=== PATIENT | male | born 1935 | race African-American/Black ===

== ENCOUNTER 2016-09-19 15:38 | Inpatient (IN) | payer MEDICARE, MEDICAID ==
[~2016-09-19] VITALS: Ht 180.3 cm; Wt 79.4 kg
[~2016-09-19 15:38] MED LIST: AMLO5TAB88 PO; APIX2.5T PO; ASPI-1035 PO; ATOR20TA65 PO; CARV3.1242 PO; LISI10TA5 PO; OMEP20CA10 PO
[2016-09-19] MEDS ORDERED: ONDANSETRON HCL 4MG/2ML VIAL IV STA (16:15)
[2016-09-19] MEDS ORDERED: ASPIRIN 81MG TABLET PO STA (16:15)
[2016-09-19 16:36] LABS: BASOPHILS % 0.8 % (0.0-2.0); EOSINOPHILS % 6.4 % (0.0-5.0); HEMATOCRIT. 39.5 % (42.0-52.0); HEMOGLOBIN. 12.6 g/dL (14.0-18.0); MEAN CORPUSCULAR HEMOGLOBIN 26.3 pg (28.0-32.0); MEAN CORPUSCULAR VOLUME 82.2 fL (80.0-94.0); MEAN PLATELET VOLUME 7.9 fl (7.4-10.4); MONOCYTES % 10.9 % (2.0-8.0); NEUTROPHILS % 60.9 % (40.0-76.0); PLATELET 172 x1000/uL (130-400); RED CELL DISTRIBUTION WIDTH 16.3 % (11.6-14.6); WHITE BLOOD COUNT 5.2 x1000/uL (4.5-11.0)
[2016-09-19 16:43] LABS: INR 1.2; PARTIAL THROMBOPLASTIN TIME 27.1 sec (24.0-34.0); PROTHROMBIN TIME 12.3 sec
[2016-09-19 16:47] LABS: ALANINE AMINOTRANSFERASE 19 IU/L (13-61); ALBUMIN 3.3 g/dL (3.4-5.0); ANION GAP 14; CALCIUM 8.9 mg/dL (8.5-10.1); CARBON DIOXIDE 24 mEq/L (21-32); CHLORIDE 109 mEq/L (98-107); ETHANOL BLOOD 34 mg/dL; INDEX HEMOLYSI 1 (1-3); INDEX ICTERIC 1 (1-4); INDEX LIPEMIC 1 (1-3); LIPASE 128 IU/L (73-393); UREA NITROGEN BLOOD 20 mg/dL (7-21); eGFR 41 mL/min (>60)
[2016-09-19 16:52] LABS: NT PRO B-TYPE NATRIURETIC PEP 3979 pg/mL (5-125); TROPONIN I 0.05 ng/mL (0.00-0.04)
[2016-09-19] MEDS ORDERED: ONDANSETRON HCL 4MG/2ML VIAL IV PRN (19:15)
[2016-09-19] MEDS ORDERED: DOCUSATE SODIUM 100MG CAPSULE PO PRN (19:15)
[2016-09-19] MEDS ORDERED: ACETAMINOPHEN 325MG TABLET PO PRN (19:15)
[2016-09-19] MEDS ORDERED: CHLORDIAZEPOXIDE 5 MG CAPSULE PO NR (19:15)
[2016-09-19 22:14] VITALS: BP 151/88
[2016-09-20] VITALS (9 sets, daily range): BP systolic 99–135; BP diastolic 63–84
[2016-09-20] MEDS ORDERED: CARVEDILOL 3.125 MG TABLET PO SCH (01:30)
[2016-09-20] MEDS: OMEPRAZOLE 20MG CAPSULE EXTENDED RELEASE PO SCH (05:29)
[2016-09-20] MEDS: CARVEDILOL 3.125 MG TABLET PO SCH ×2 (05:30→17:08)
[2016-09-20 07:15] LABS: HEMATOCRIT. 38.9 % (42.0-52.0); HEMOGLOBIN. 12.7 g/dL (14.0-18.0); MEAN CORPUSCULAR HEMOGLOBIN 26.8 pg (28.0-32.0); MEAN CORPUSCULAR HGB CONC 32.5 g/dL (31.0-37.0); MEAN CORPUSCULAR VOLUME 82.2 fL (80.0-94.0); MEAN PLATELET VOLUME 8.5 fl (7.4-10.4); PLATELET 167 x1000/uL (130-400); RED BLOOD CELL COUNT 4.73 mill/uL (4.7-6.1); RED CELL DISTRIBUTION WIDTH 16.3 % (11.6-14.6); WHITE BLOOD COUNT 4.8 x1000/uL (4.5-11.0)
[2016-09-20 07:26] LABS: CALCIUM 9.5 mg/dL (8.5-10.1); MAGNESIUM 2.1 mg/dL (1.8-2.4)
[2016-09-20 07:58] LABS: DIFFERENTIAL COMMENT 1
[2016-09-20] MEDS: ATORVASTATIN CALCIUM 20MG TABLET PO SCH (08:32)
[2016-09-20] MEDS: AMLODIPINE 5MG TABLET PO SCH ×2 (08:34→17:07)
[2016-09-20] MEDS: ASPIRIN 81MG EC TABLET PO SCH (08:34)
[2016-09-20] MEDS: LISINOPRIL 10MG TABLET PO SCH (08:34)
[2016-09-20] MEDS: APIXABAN 2.5 MG TABLET PO SCH ×2 (08:34→17:07)
[2016-09-20 13:13] LABS: PLATELET ESTIMATE NORMAL
[2016-09-20 19:48] LABS: GLUCOSE URINE NEGATIVE (NEGATIVE); KETONES URINE NEGATIVE (NEGATIVE); LEUKOCYTE ESTERASE URINE NEGATIVE (NEGATIVE); NITRITE URINE NEGATIVE (NEGATIVE); OCCULT BLOOD URINE NEGATIVE (NEGATIVE); PROTEIN URINE NEGATIVE (NEGATIVE); SPECIFIC GRAVITY URINE 1.014 (1.005-1.030)
[2016-09-20 19:56] LABS: CLARITY URINE CLEAR (CLEAR); COLOR URINE YELLOW (YELLOW)
[2016-09-20 20:38] LABS: *AMPHETAMINES SCREEN URINE NEGATIVE (NEGATIVE); *BARBITURATES SCREEN URINE NEGATIVE (NEGATIVE); *BENZODIAZEPINES SCREEN URINE NEGATIVE (NEGATIVE); *COCAINE SCREEN URINE NEGATIVE (NEGATIVE); CANNABINOID URINE SCREEN NEGATIVE (NEGATIVE); ECSTASY MDMA SCREEN URINE NEGATIVE (NEGATIVE); METHADONE URINE SCREEN NEGATIVE (NEGATIVE); OPIATES URINE SCREEN NEGATIVE (NEGATIVE); PHENCYCLIDINE URINE SCREEN NEGATIVE (NEGATIVE)
[2016-09-21] VITALS (7 sets, daily range): BP systolic 102–141; BP diastolic 50–85
[2016-09-21] MEDS: CARVEDILOL 3.125 MG TABLET PO SCH (07:00)
[2016-09-21] MEDS: OMEPRAZOLE 20MG CAPSULE EXTENDED RELEASE PO SCH (07:00)
[2016-09-21 07:53] LABS: BASOPHILS % 0.6 % (0.0-2.0); EOSINOPHILS % 7.1 % (0.0-5.0); HEMOGLOBIN. 11.9 g/dL (14.0-18.0); LYMPHOCYTES % 23.2 % (20.0-50.0); MEAN CORPUSCULAR HEMOGLOBIN 26.3 pg (28.0-32.0); MEAN CORPUSCULAR HGB CONC 32.3 g/dL (31.0-37.0); MEAN CORPUSCULAR VOLUME 81.4 fL (80.0-94.0); MEAN PLATELET VOLUME 8.2 fl (7.4-10.4); NEUTROPHILS % 57.1 % (40.0-76.0); PLATELET 166 x1000/uL (130-400); RED BLOOD CELL COUNT 4.55 mill/uL (4.7-6.1); RED CELL DISTRIBUTION WIDTH 16.2 % (11.6-14.6); WHITE BLOOD COUNT 4.4 x1000/uL (4.5-11.0)
[2016-09-21 08:08] LABS: CALCIUM 8.7 mg/dL (8.5-10.1); MAGNESIUM 2.1 mg/dL (1.8-2.4)
[2016-09-21] MEDS: AMLODIPINE 5MG TABLET PO SCH (09:00)
[2016-09-21] MEDS: LISINOPRIL 10MG TABLET PO SCH (09:00)
[2016-09-21] MEDS: ATORVASTATIN CALCIUM 20MG TABLET PO SCH (09:22)
[2016-09-21] MEDS: ASPIRIN 81MG EC TABLET PO SCH (09:22)
[2016-09-21] MEDS: APIXABAN 2.5 MG TABLET PO SCH (09:22)
== END 2016-09-21 16:20 | disposition home or self-care (01) | DRG 896 ==
LOC: ER 15:38 → 8WST 17:08
PROVIDERS: ADMIT Family Medicine Adult Medicine; ATTEND Family Medicine Adult Medicine
DX: F10.129 Alcohol abuse with intoxication, unspecified (principal); G93.40 Encephalopathy, unspecified; E44.1 Mild protein-calorie malnutrition; I42.9 Cardiomyopathy, unspecified; N18.4 Chronic kidney disease, stage 4 (severe); G81.94 Hemiplegia, unspecified affecting left nondominant side; I13.0 Hypertensive heart and chronic kidney disease with heart failure and stage 1 through stage 4 chronic kidney disease, or unspecified chronic kidney disease; N17.9 Acute kidney failure, unspecified; D64.9 Anemia, unspecified; E11.22 Type 2 diabetes mellitus with diabetic chronic kidney disease; F03.90 Unspecified dementia, unspecified severity, without behavioral disturbance, psychotic disturbance, mood disturbance, and anxiety; I25.10 Atherosclerotic heart disease of native coronary artery without angina pectoris; I48.91 Unspecified atrial fibrillation; I50.9 Heart failure, unspecified; J44.9 Chronic obstructive pulmonary disease, unspecified; N40.0 Benign prostatic hyperplasia without lower urinary tract symptoms; Z86.73 Personal history of transient ischemic attack (TIA), and cerebral infarction without residual deficits; Z95.810 Presence of automatic (implantable) cardiac defibrillator; Z68.24 Body mass index [BMI] 24.0-24.9, adult; Z88.0 Allergy status to penicillin; Z88.5 Allergy status to narcotic agent; Z88.8 Allergy status to other drugs, medicaments and biological substances
CPT/HCPCS: 36415; 70450; 71010; 76770; 80048; 80053; 80305; 81003; 82962; 83690; 83735; 83880; 84100; 84484; 85025; 85610; 85730; 87086; 93005; 96374; 97116; 97162; 97530; 99291; G0482; J2405; J7030

== ENCOUNTER 2016-09-26 18:12 | Inpatient (IN) | payer MEDICARE, MEDICAID ==
[~2016-09-26] VITALS: Ht 180.3 cm; Wt 80.3 kg
[2016-09-26 19:32] LABS: BASOPHILS % 0.9 % (0.0-2.0); EOSINOPHILS % 5.9 % (0.0-5.0); HEMATOCRIT. 42.7 % (42.0-52.0); HEMOGLOBIN. 13.8 g/dL (14.0-18.0); LYMPHOCYTES % 14.8 % (20.0-50.0); MEAN CORPUSCULAR HEMOGLOBIN 26.5 pg (28.0-32.0); MEAN CORPUSCULAR HGB CONC 32.3 g/dL (31.0-37.0); MEAN CORPUSCULAR VOLUME 82.2 fL (80.0-94.0); MEAN PLATELET VOLUME 8.3 fl (7.4-10.4); MONOCYTES % 11.7 % (2.0-8.0); NEUTROPHILS % 66.7 % (40.0-76.0); PLATELET 225 x1000/uL (130-400); RED CELL DISTRIBUTION WIDTH 16.7 % (11.6-14.6); WHITE BLOOD COUNT 6.4 x1000/uL (4.5-11.0)
[2016-09-26 19:38] LABS: CHLORIDE 105 mEq/L (98-107)
[2016-09-26 19:39] LABS: INR 1.1
[2016-09-26 19:42] LABS: ALBUMIN 3.3 g/dL (3.4-5.0); ANION GAP 16; CALCIUM 9.3 mg/dL (8.5-10.1); CARBON DIOXIDE 26 mEq/L (21-32); INDEX HEMOLYSI 1 (1-3); INDEX ICTERIC 1 (1-4); INDEX LIPEMIC 1 (1-3); UREA NITROGEN BLOOD 34 mg/dL (7-21)
[2016-09-26 19:45] LABS: ALANINE AMINOTRANSFERASE 14 IU/L (13-61); eGFR 33 mL/min (>60)
[2016-09-26 19:49] LABS: NT PRO B-TYPE NATRIURETIC PEP 2786 pg/mL (5-125); TROPONIN I 0.05 ng/mL (0.00-0.04)
[2016-09-26] MEDS ORDERED: SODIUM CHLORIDE 0.9% 250 ML IV ONE (21:00)
[2016-09-26 23:20] VITALS: BP 145/81
[2016-09-26 23:30] VITALS: BP 145/81
[2016-09-27] VITALS (8 sets, daily range): BP systolic 111–148; BP diastolic 65–82
[2016-09-27] MEDS ORDERED: ACETAMINOPHEN 325MG TABLET PO PRN ×2 (01:15→11:00)
[2016-09-27] MEDS ORDERED: ONDANSETRON HCL 4MG/2ML VIAL IV PRN (01:15)
[2016-09-27] MEDS: SODIUM CHLORIDE 0.9% 1,000 ML IV SCH ×2 (02:28→17:23)
[2016-09-27 02:56] LABS: CLARITY URINE CLEAR (CLEAR); COLOR URINE YELLOW (YELLOW); GLUCOSE URINE NEGATIVE (NEGATIVE); KETONES URINE TRACE (NEGATIVE); LEUKOCYTE ESTERASE URINE TRACE (NEGATIVE); NITRITE URINE NEGATIVE (NEGATIVE); OCCULT BLOOD URINE 2+ (NEGATIVE); PH URINE 5.5 (4.5-8.0); PROTEIN URINE TRACE (NEGATIVE); SPECIFIC GRAVITY URINE 1.018 (1.005-1.030)
[2016-09-27 04:34] LABS: SQUAMOUS EPITHELIAL CELL URINE RARE /lpf (RARE/1+)
[2016-09-27 04:35] LABS: BACTERIA URINE NONE SEEN
[2016-09-27] MEDS ORDERED: FURO-151 PO (09:55)
[2016-09-27] MEDS ORDERED: MEMA10TA11 PO (09:55)
[2016-09-27] MEDS: MEMANTINE HCL 5MG TABLET PO SCH (11:48)
[2016-09-27] MEDS: PANTOPRAZOLE SODIUM 40 MG/VIAL IV SCH (11:48)
[2016-09-27] MEDS: MORPHINE SULFATE 2 MG/ML CPJ (NOT FOR IM USE) IV PRN (11:49)
[2016-09-27] MEDS ORDERED: LACTULOSE 20G/30ML UDC PO NR (15:00)
[2016-09-27] MEDS: APIXABAN 2.5 MG TABLET PO SCH (17:22)
[2016-09-27] MEDS: DOCUSATE SODIUM 100MG CAPSULE PO SCH (17:22)
[2016-09-27] MEDS: CARVEDILOL 6.25 MG TABLET PO SCH (21:17)
[2016-09-28] VITALS (16 sets, daily range): BP systolic 110–171; BP diastolic 56–111
[2016-09-28] MEDS: MORPHINE SULFATE 2 MG/ML CPJ (NOT FOR IM USE) IV PRN ×3 (03:26→20:47)
[2016-09-28] MEDS ORDERED: LACTULOSE 20G/30ML UDC PO NR (07:00)
[2016-09-28 07:10] LABS: BASOPHILS % 0.8 % (0.0-2.0); EOSINOPHILS % 7.4 % (0.0-5.0); HEMATOCRIT. 40.1 % (42.0-52.0); HEMOGLOBIN. 12.9 g/dL (14.0-18.0); LYMPHOCYTES % 18.9 % (20.0-50.0); MEAN CORPUSCULAR HEMOGLOBIN 26.4 pg (28.0-32.0); MEAN CORPUSCULAR HGB CONC 32.2 g/dL (31.0-37.0); MEAN CORPUSCULAR VOLUME 82.1 fL (80.0-94.0); MEAN PLATELET VOLUME 8.3 fl (7.4-10.4); MONOCYTES % 10.2 % (2.0-8.0); NEUTROPHILS % 62.7 % (40.0-76.0); PLATELET 208 x1000/uL (130-400); RED BLOOD CELL COUNT 4.89 mill/uL (4.7-6.1); RED CELL DISTRIBUTION WIDTH 16.7 % (11.6-14.6); WHITE BLOOD COUNT 6.3 x1000/uL (4.5-11.0)
[2016-09-28 07:30] LABS: BILIRUBIN DIRECT 0.1 mg/dL (0.0-0.2); CALCIUM 8.7 mg/dL (8.5-10.1); MAGNESIUM 2.3 mg/dL (1.8-2.4); PHOSPHORUS 3.4 mg/dL (2.5-4.9)
[2016-09-28] MEDS: PANTOPRAZOLE SODIUM 40 MG/VIAL IV SCH (08:39)
[2016-09-28] MEDS: DOCUSATE SODIUM 100MG CAPSULE PO SCH ×2 (08:39→17:00)
[2016-09-28] MEDS: LISINOPRIL 10MG TABLET PO SCH (08:40)
[2016-09-28] MEDS: APIXABAN 2.5 MG TABLET PO SCH ×2 (08:40→17:00)
[2016-09-28] MEDS: MEMANTINE HCL 5MG TABLET PO SCH (08:40)
[2016-09-28] MEDS: AMLODIPINE 5MG TABLET PO SCH (08:40)
[2016-09-28] MEDS: CARVEDILOL 6.25 MG TABLET PO SCH ×2 (08:40→20:46)
[2016-09-28] MEDS ORDERED: SODIUM CHLORIDE 0.45% 1,000 ML IV SCH (09:45)
[2016-09-29] VITALS (16 sets, daily range): BP systolic 97–128; BP diastolic 46–87
[2016-09-29] MEDS: APIXABAN 2.5 MG TABLET PO SCH ×2 (05:15→17:49)
[2016-09-29 06:57] LABS: BASOPHILS % 0.7 % (0.0-2.0); HEMATOCRIT. 39.6 % (42.0-52.0); HEMOGLOBIN. 12.7 g/dL (14.0-18.0); LYMPHOCYTES % 17.6 % (20.0-50.0); MEAN CORPUSCULAR HEMOGLOBIN 26.5 pg (28.0-32.0); MEAN CORPUSCULAR HGB CONC 32.1 g/dL (31.0-37.0); MEAN CORPUSCULAR VOLUME 82.7 fL (80.0-94.0); MEAN PLATELET VOLUME 8.5 fl (7.4-10.4); MONOCYTES % 9.8 % (2.0-8.0); NEUTROPHILS % 64.9 % (40.0-76.0); PLATELET 209 x1000/uL (130-400); RED BLOOD CELL COUNT 4.78 mill/uL (4.7-6.1); RED CELL DISTRIBUTION WIDTH 16.6 % (11.6-14.6); WHITE BLOOD COUNT 6.3 x1000/uL (4.5-11.0)
[2016-09-29 06:58] LABS: CALCIUM 8.8 mg/dL (8.5-10.1)
[2016-09-29] MEDS: PANTOPRAZOLE SODIUM 40 MG/VIAL IV SCH (09:38)
[2016-09-29] MEDS: CARVEDILOL 6.25 MG TABLET PO SCH ×2 (09:39→21:00)
[2016-09-29] MEDS: DOCUSATE SODIUM 100MG CAPSULE PO SCH ×2 (09:41→17:49)
[2016-09-29] MEDS: AMLODIPINE 5MG TABLET PO SCH (09:41)
[2016-09-29] MEDS: LISINOPRIL 10MG TABLET PO SCH (09:41)
[2016-09-29] MEDS: MEMANTINE HCL 5MG TABLET PO SCH (09:45)
[2016-09-29] MEDS: MORPHINE SULFATE 2 MG/ML CPJ (NOT FOR IM USE) IV PRN (11:43)
[2016-09-29] MEDS ORDERED: SODIUM CHLORIDE 0.45% 1,000 ML IV SCH (20:30)
[2016-09-29] MEDS ORDERED: LACTULOSE 20G/30ML UDC PO NR (20:30)
[2016-09-29] MEDS: HYDROCODONE/ACETAMINOPHEN 5/325MG TABLET PO PRN (21:55)
[2016-09-30] VITALS (12 sets, daily range): BP systolic 93–140; BP diastolic 46–85
[2016-09-30 06:24] LABS: BASOPHILS % 0.7 % (0.0-2.0); EOSINOPHILS % 6.9 % (0.0-5.0); HEMATOCRIT. 38.1 % (42.0-52.0); HEMOGLOBIN. 12.3 g/dL (14.0-18.0); LYMPHOCYTES % 20.1 % (20.0-50.0); MEAN CORPUSCULAR HEMOGLOBIN 26.7 pg (28.0-32.0); MEAN CORPUSCULAR HGB CONC 32.3 g/dL (31.0-37.0); MEAN CORPUSCULAR VOLUME 82.5 fL (80.0-94.0); MEAN PLATELET VOLUME 8.3 fl (7.4-10.4); MONOCYTES % 9.8 % (2.0-8.0); NEUTROPHILS % 62.5 % (40.0-76.0); PLATELET 208 x1000/uL (130-400); RED BLOOD CELL COUNT 4.61 mill/uL (4.7-6.1); RED CELL DISTRIBUTION WIDTH 16.2 % (11.6-14.6); WHITE BLOOD COUNT 5.3 x1000/uL (4.5-11.0)
[2016-09-30] MEDS: APIXABAN 2.5 MG TABLET PO SCH ×2 (06:31→17:55)
[2016-09-30 07:33] LABS: CALCIUM 8.7 mg/dL (8.5-10.1)
[2016-09-30] MEDS: CARVEDILOL 6.25 MG TABLET PO SCH ×2 (09:00→21:53)
[2016-09-30] MEDS: DOCUSATE SODIUM 100MG CAPSULE PO SCH ×2 (10:59→17:56)
[2016-09-30] MEDS: MEMANTINE HCL 5MG TABLET PO SCH (11:00)
[2016-09-30] MEDS: AMLODIPINE 5MG TABLET PO SCH (11:01)
[2016-09-30] MEDS: FAMOTIDINE 20MG TABLET PO SCH (11:01)
[2016-09-30] MEDS: LISINOPRIL 10MG TABLET PO SCH (11:01)
[2016-09-30] MEDS: MORPHINE SULFATE 2 MG/ML CPJ (NOT FOR IM USE) IV PRN ×2 (11:09→22:23)
[2016-10-01] VITALS (16 sets, daily range): BP systolic 113–164; BP diastolic 58–97
[2016-10-01] MEDS: APIXABAN 2.5 MG TABLET PO SCH ×2 (05:51→18:22)
[2016-10-01] MEDS: HALOPERIDOL LACTATE 5MG/ML VIAL IM PRN ×2 (06:24→19:57)
[2016-10-01 08:24] LABS: BASOPHILS % 0.4 % (0.0-2.0); EOSINOPHILS % 5.9 % (0.0-5.0); HEMATOCRIT. 41.2 % (42.0-52.0); HEMOGLOBIN. 13.2 g/dL (14.0-18.0); LYMPHOCYTES % 17.4 % (20.0-50.0); MEAN CORPUSCULAR HEMOGLOBIN 26.3 pg (28.0-32.0); MEAN CORPUSCULAR HGB CONC 31.9 g/dL (31.0-37.0); MEAN CORPUSCULAR VOLUME 82.3 fL (80.0-94.0); MEAN PLATELET VOLUME 8.3 fl (7.4-10.4); MONOCYTES % 9.2 % (2.0-8.0); NEUTROPHILS % 67.1 % (40.0-76.0); PLATELET 240 x1000/uL (130-400); RED BLOOD CELL COUNT 5.01 mill/uL (4.7-6.1); RED CELL DISTRIBUTION WIDTH 16.1 % (11.6-14.6); WHITE BLOOD COUNT 6.7 x1000/uL (4.5-11.0)
[2016-10-01] MEDS: DOCUSATE SODIUM 100MG CAPSULE PO SCH ×2 (09:00→17:00)
[2016-10-01] MEDS: LISINOPRIL 10MG TABLET PO SCH (09:00)
[2016-10-01] MEDS: FAMOTIDINE 20MG TABLET PO SCH (09:00)
[2016-10-01] MEDS: AMLODIPINE 5MG TABLET PO SCH (09:01)
[2016-10-01] MEDS: MEMANTINE HCL 5MG TABLET PO SCH (09:01)
[2016-10-01] MEDS: CARVEDILOL 6.25 MG TABLET PO SCH ×2 (09:02→19:58)
[2016-10-01] MEDS: HYDROCODONE/ACETAMINOPHEN 5/325MG TABLET PO PRN (14:37)
[2016-10-02] VITALS (13 sets, daily range): BP systolic 99–144; BP diastolic 42–96
[2016-10-02] MEDS: HALOPERIDOL LACTATE 5MG/ML VIAL IM PRN ×2 (03:58→17:54)
[2016-10-02] MEDS: APIXABAN 2.5 MG TABLET PO SCH ×2 (06:06→17:51)
[2016-10-02 07:20] LABS: BASOPHILS % 0.5 % (0.0-2.0); HEMATOCRIT. 36.6 % (42.0-52.0); LYMPHOCYTES % 13.6 % (20.0-50.0); MEAN CORPUSCULAR HEMOGLOBIN 26.8 pg (28.0-32.0); MEAN CORPUSCULAR HGB CONC 32.7 g/dL (31.0-37.0); MEAN PLATELET VOLUME 8.7 fl (7.4-10.4); MONOCYTES % 8.1 % (2.0-8.0); NEUTROPHILS % 70.8 % (40.0-76.0); PLATELET 231 x1000/uL (130-400); RED BLOOD CELL COUNT 4.46 mill/uL (4.7-6.1); RED CELL DISTRIBUTION WIDTH 16.4 % (11.6-14.6)
[2016-10-02 07:48] LABS: CALCIUM 8.9 mg/dL (8.5-10.1)
[2016-10-02] MEDS: DOCUSATE SODIUM 100MG CAPSULE PO SCH ×2 (09:00→17:00)
[2016-10-02] MEDS: FAMOTIDINE 20MG TABLET PO SCH (09:38)
[2016-10-02] MEDS: AMLODIPINE 5MG TABLET PO SCH (09:38)
[2016-10-02] MEDS: LISINOPRIL 10MG TABLET PO SCH (09:38)
[2016-10-02] MEDS: CARVEDILOL 6.25 MG TABLET PO SCH ×2 (09:39→20:50)
[2016-10-02] MEDS: MEMANTINE HCL 5MG TABLET PO SCH (09:39)
[2016-10-02] MEDS: SODIUM BICARBONATE 50 MEQ in SODIUM CHLORIDE 0.45% 1,000 ML IV SCH (15:09)
[2016-10-02] MEDS: METOCLOPRAMIDE HCL 10MG/2ML VIAL IV SCH ×2 (15:10→17:51)
[2016-10-02] MEDS: HYDROCODONE/ACETAMINOPHEN 5/325MG TABLET PO PRN (15:28)
[2016-10-03] VITALS (12 sets, daily range): BP systolic 94–151; BP diastolic 51–99
[2016-10-03] MEDS: HALOPERIDOL LACTATE 5MG/ML VIAL IM PRN ×2 (00:55→08:29)
[2016-10-03] MEDS: METOCLOPRAMIDE HCL 10MG/2ML VIAL IV SCH ×5 (00:56→23:02)
[2016-10-03] MEDS: APIXABAN 2.5 MG TABLET PO SCH ×2 (05:50→18:17)
[2016-10-03 06:12] LABS: BASOPHILS % 0.4 % (0.0-2.0); EOSINOPHILS % 8.4 % (0.0-5.0); HEMATOCRIT. 36.5 % (42.0-52.0); HEMOGLOBIN. 12.1 g/dL (14.0-18.0); LYMPHOCYTES % 18.5 % (20.0-50.0); MEAN CORPUSCULAR HEMOGLOBIN 26.9 pg (28.0-32.0); MEAN CORPUSCULAR VOLUME 81.6 fL (80.0-94.0); MEAN PLATELET VOLUME 8.4 fl (7.4-10.4); MONOCYTES % 10.2 % (2.0-8.0); NEUTROPHILS % 62.5 % (40.0-76.0); PLATELET 225 x1000/uL (130-400); RED BLOOD CELL COUNT 4.47 mill/uL (4.7-6.1); WHITE BLOOD COUNT 5.2 x1000/uL (4.5-11.0)
[2016-10-03 06:25] LABS: CALCIUM 8.7 mg/dL (8.5-10.1)
[2016-10-03] MEDS: LISINOPRIL 10MG TABLET PO SCH (08:28)
[2016-10-03] MEDS: FAMOTIDINE 20MG TABLET PO SCH (08:28)
[2016-10-03] MEDS: MEMANTINE HCL 5MG TABLET PO SCH (08:28)
[2016-10-03] MEDS: CARVEDILOL 6.25 MG TABLET PO SCH ×2 (08:28→20:35)
[2016-10-03] MEDS: AMLODIPINE 5MG TABLET PO SCH (08:28)
[2016-10-03] MEDS: DOCUSATE SODIUM 100MG CAPSULE PO SCH ×2 (08:29→18:17)
[2016-10-03] MEDS ORDERED: SORBITOL 70% SOLN 30ML PO SCH ×2 (10:00→14:00)
[2016-10-03] MEDS: SENNOSIDES/DOCUSATE SOD 8.6/50MG TABLET PO SCH (13:50)
[2016-10-03] MEDS ORDERED: HALOPERIDOL LACTATE 5MG/ML VIAL IM PRN (14:15)
[2016-10-03] MEDS: SODIUM BICARBONATE 50 MEQ in SODIUM CHLORIDE 0.45% 1,000 ML IV SCH (16:53)
[2016-10-04] VITALS (11 sets, daily range): BP systolic 120–167; BP diastolic 68–98
[2016-10-04] MEDS: METOCLOPRAMIDE HCL 10MG/2ML VIAL IV SCH ×4 (06:06→23:08)
[2016-10-04] MEDS: APIXABAN 2.5 MG TABLET PO SCH ×2 (06:06→17:47)
[2016-10-04 06:29] LABS: BASOPHILS % 0.4 % (0.0-2.0); EOSINOPHILS % 7.7 % (0.0-5.0); HEMATOCRIT. 39.9 % (42.0-52.0); HEMOGLOBIN. 12.9 g/dL (14.0-18.0); LYMPHOCYTES % 11.8 % (20.0-50.0); MEAN CORPUSCULAR HEMOGLOBIN 26.6 pg (28.0-32.0); MEAN CORPUSCULAR HGB CONC 32.3 g/dL (31.0-37.0); MEAN CORPUSCULAR VOLUME 82.2 fL (80.0-94.0); MEAN PLATELET VOLUME 8.2 fl (7.4-10.4); MONOCYTES % 9.4 % (2.0-8.0); NEUTROPHILS % 70.7 % (40.0-76.0); PLATELET 253 x1000/uL (130-400); RED BLOOD CELL COUNT 4.85 mill/uL (4.7-6.1); RED CELL DISTRIBUTION WIDTH 16.5 % (11.6-14.6); WHITE BLOOD COUNT 7.9 x1000/uL (4.5-11.0)
[2016-10-04 09:29] LABS: INR 1.2; PARTIAL THROMBOPLASTIN TIME 28.6 sec (24.0-34.0); PROTHROMBIN TIME 12.9 sec
[2016-10-04] MEDS: DOCUSATE SODIUM 100MG CAPSULE PO SCH ×2 (10:27→17:47)
[2016-10-04] MEDS: FAMOTIDINE 20MG TABLET PO SCH (10:27)
[2016-10-04] MEDS: MEMANTINE HCL 5MG TABLET PO SCH (10:27)
[2016-10-04] MEDS: LISINOPRIL 10MG TABLET PO SCH (10:28)
[2016-10-04] MEDS: CARVEDILOL 6.25 MG TABLET PO SCH ×2 (10:28→20:49)
[2016-10-04] MEDS: SENNOSIDES/DOCUSATE SOD 8.6/50MG TABLET PO SCH (10:28)
[2016-10-04] MEDS: AMLODIPINE 5MG TABLET PO SCH (10:28)
[2016-10-04] MEDS ORDERED: SODIUM CHLORIDE 0.9% 10ML VIAL ONE (14:37)
[2016-10-04] MEDS ORDERED: IOHEXOL-350 100 ML BOTTLE ONE (14:37)
[2016-10-04] MEDS: SODIUM BICARBONATE 50 MEQ in SODIUM CHLORIDE 0.45% 1,000 ML IV SCH ×2 (15:30→23:15)
[2016-10-05] VITALS: BP 131/75
[2016-10-05 04:00] VITALS: BP 149/90
[2016-10-05] MEDS: APIXABAN 2.5 MG TABLET PO SCH (05:39)
[2016-10-05] MEDS: METOCLOPRAMIDE HCL 10MG/2ML VIAL IV SCH ×2 (05:45→11:12)
[2016-10-05 06:52] LABS: BASOPHILS % 0.5 % (0.0-2.0); EOSINOPHILS % 8.7 % (0.0-5.0); HEMATOCRIT. 37.4 % (42.0-52.0); HEMOGLOBIN. 12.1 g/dL (14.0-18.0); LYMPHOCYTES % 8.9 % (20.0-50.0); MEAN CORPUSCULAR HEMOGLOBIN 26.5 pg (28.0-32.0); MEAN CORPUSCULAR HGB CONC 32.3 g/dL (31.0-37.0); MEAN CORPUSCULAR VOLUME 82.1 fL (80.0-94.0); MEAN PLATELET VOLUME 8.2 fl (7.4-10.4); MONOCYTES % 7.6 % (2.0-8.0); NEUTROPHILS % 74.3 % (40.0-76.0); PLATELET 251 x1000/uL (130-400); RED BLOOD CELL COUNT 4.55 mill/uL (4.7-6.1); RED CELL DISTRIBUTION WIDTH 16.4 % (11.6-14.6); WHITE BLOOD COUNT 7.4 x1000/uL (4.5-11.0)
[2016-10-05 07:21] LABS: CALCIUM 8.8 mg/dL (8.5-10.1); MAGNESIUM 2.1 mg/dL (1.8-2.4); PHOSPHORUS 2.9 mg/dL (2.5-4.9)
[2016-10-05 08:00] VITALS: BP 133/81
[2016-10-05] MEDS: LISINOPRIL 10MG TABLET PO SCH (08:34)
[2016-10-05] MEDS: DOCUSATE SODIUM 100MG CAPSULE PO SCH (08:35)
[2016-10-05] MEDS: FAMOTIDINE 20MG TABLET PO SCH (08:36)
[2016-10-05] MEDS: MEMANTINE HCL 5MG TABLET PO SCH (08:36)
[2016-10-05] MEDS: SENNOSIDES/DOCUSATE SOD 8.6/50MG TABLET PO SCH (08:37)
[2016-10-05] MEDS: CARVEDILOL 6.25 MG TABLET PO SCH (08:37)
[2016-10-05] MEDS: AMLODIPINE 5MG TABLET PO SCH (08:40)
[2016-10-05 12:00] VITALS: BP 138/82
[2016-10-05 16:00] VITALS: BP 153/87
[2016-10-05 16:38] VITALS: BP 153/87
== END 2016-10-05 17:10 | disposition home or self-care (01) | DRG 682 ==
LOC: ER 18:27 → 8WST 20:57 → 5EST 09-27 20:30 → 8WST 10-04 16:50
PROVIDERS: ADMIT Family Medicine Adult Medicine; ATTEND Family Medicine Adult Medicine
PROC: 4B02XSZ Measurement of Cardiac Pacemaker, External Approach (ICD-10-PCS; 2016-09-27)
PROC: 02HV33Z Insertion of Infusion Device into Superior Vena Cava, Percutaneous Approach (ICD-10-PCS; principal; 2016-10-04)
PROC: B548ZZA Ultrasonography of Superior Vena Cava, Guidance (ICD-10-PCS; 2016-10-04)
DX: N17.9 Acute kidney failure, unspecified (principal); I50.23 Acute on chronic systolic (congestive) heart failure; K56.7 Ileus, unspecified; I13.0 Hypertensive heart and chronic kidney disease with heart failure and stage 1 through stage 4 chronic kidney disease, or unspecified chronic kidney disease; E44.1 Mild protein-calorie malnutrition; N39.0 Urinary tract infection, site not specified; I42.0 Dilated cardiomyopathy; I69.354 Hemiplegia and hemiparesis following cerebral infarction affecting left non-dominant side; J44.9 Chronic obstructive pulmonary disease, unspecified; D64.9 Anemia, unspecified; F03.90 Unspecified dementia, unspecified severity, without behavioral disturbance, psychotic disturbance, mood disturbance, and anxiety; I25.10 Atherosclerotic heart disease of native coronary artery without angina pectoris; I48.2 Chronic atrial fibrillation; N18.9 Chronic kidney disease, unspecified; I71.2 Thoracic aortic aneurysm, without rupture; R26.9 Unspecified abnormalities of gait and mobility; K22.2 Esophageal obstruction; N40.0 Benign prostatic hyperplasia without lower urinary tract symptoms; Z78.1 Physical restraint status; Z79.01 Long term (current) use of anticoagulants; Z85.038 Personal history of other malignant neoplasm of large intestine; Z90.49 Acquired absence of other specified parts of digestive tract; Z87.19 Personal history of other diseases of the digestive system; Z95.0 Presence of cardiac pacemaker; Z88.1 Allergy status to other antibiotic agents; Z88.0 Allergy status to penicillin; Z88.8 Allergy status to other drugs, medicaments and biological substances; Z79.82 Long term (current) use of aspirin; Z79.899 Other long term (current) drug therapy; Z72.89 Other problems related to lifestyle; Z68.24 Body mass index [BMI] 24.0-24.9, adult
CPT/HCPCS: 36415; 36569; 51702; 70450; 71010; 71250; 71275; 74000; 76937; 78582; 80048; 80053; 80076; 81001; 82962; 83735; 83880; 84100; 84484; 85025; 85610; 85730; 87086; 92523; 92610; 93005; 93880; 96360; 97116; 97163; 97166; 97530; 99285; A4216; A9558; C1725; C1892; C1893; C9113; G0482; J1630; J2270; J2405; J2765; J3490; J7030; J7040; J7050; Q9967; A4315

== ENCOUNTER 2016-11-20 11:06 | Inpatient (IN) | payer MEDICARE, MEDICAID ==
[~2016-11-20] VITALS: Ht 180.3 cm; Wt 81.2 kg
[~2016-11-20 11:06] MED LIST changes: -ASPI-1035 PO; +ASPI-1159 PO; +FURO-151 PO; +MEMA10TA2 PO
[2016-11-20] MEDS ORDERED: FUROSEMIDE 40MG/4ML VIAL IVP SCH (12:00)
[2016-11-20] MEDS ORDERED: MAGNESIUM/ALUMINUM HYDROXIDE/SIMETHICONE 30ML UDC PO PRN (12:00)
[2016-11-20] MEDS ORDERED: DOCUSATE SODIUM 100MG CAPSULE PO PRN (12:00)
[2016-11-20] MEDS ORDERED: IPRATROPIUM/ALBUTEROL 0.5-3(2.5)MG/3ML NEB INH PRN (12:00)
[2016-11-20] MEDS ORDERED: ONDANSETRON HCL 4MG/2ML VIAL IV PRN (12:00)
[2016-11-20 13:18] LABS: HEMOGLOBIN 12.8 g/dL (14.0-18.0); MEAN CORPUSCULAR HEMOGLOBIN 26.6 pg (28.0-32.0); MEAN CORPUSCULAR VOLUME 83.4 fL (80.0-94.0); PLATELET 172 x1000/uL (130-400); RED CELL DISTRIBUTION WIDTH 16.5 % (11.6-14.6)
[2016-11-20 13:55] LABS: CARBON DIOXIDE 24 mEq/L (21-32); CHLORIDE 113 mEq/L (98-107); ETHANOL BLOOD < 10 mg/dL; TROPONIN I 0.07 ng/mL (0.00-0.04)
[2016-11-20 15:54] LABS: BG BASE EXCESS -5.1 mmol/L (-2.0-2.0); BG CARBOXYHEMOGLOBIN 0.4 % (0.5-1.5); BG FRACTION INSPIRED OXYGEN 28; BG HCO3 ACT 18.7 mmol/L (22.0-26.0); BG METHEMOGLOBIN 0.5 % (0.0-1.5); BG OXYHEMOGLOBIN 96.1 % (94.0-97.0); BG PCO2 31.7 mmHg (35.0-45.0); BG PH 7.389 (7.350-7.450); BG PO2 94.8 mmHg (75.0-100.0); BG SAMPLE SITE LEFT RADIAL; BG TOTAL HEMOGLOBIN 14.5 g/dL (12.0-18.0); BG VENT MODE NASAL CANNULA
[2016-11-20] MEDS: APIXABAN 2.5 MG TABLET PO SCH (16:24)
[2016-11-20] MEDS: HYDROCODONE/ACETAMINOPHEN 5/325MG TABLET PO PRN ×2 (16:25→23:01)
[2016-11-20] MEDS: FUROSEMIDE 40MG/4ML VIAL IVP SCH (16:27)
[2016-11-20] MEDS ORDERED: PANTOPRAZOLE SODIUM 40 MG/VIAL IV NR (20:00)
[2016-11-20] MEDS: IPRATROPIUM/ALBUTEROL 0.5-3(2.5)MG/3ML NEB INH SCH (20:11)
[2016-11-20] MEDS ORDERED: ZOLPIDEM TARTRATE 5MG TABLET PO PRN (21:00)
[2016-11-20] MEDS: LISINOPRIL 10MG TABLET PO SCH (21:00)
[2016-11-20] MEDS: ATORVASTATIN CALCIUM 20MG TABLET PO SCH (22:47)
[2016-11-20] MEDS: CARVEDILOL 3.125 MG TABLET PO SCH (22:47)
[2016-11-20] MEDS: AMLODIPINE 5MG TABLET PO SCH (22:49)
[2016-11-21] MEDS: IPRATROPIUM/ALBUTEROL 0.5-3(2.5)MG/3ML NEB INH SCH ×4 (02:00→20:08)
[2016-11-21] MEDS ORDERED: PANTOPRAZOLE SODIUM 40 MG/VIAL IV SCH (09:00)
[2016-11-21] MEDS: OMEPRAZOLE 20MG CAPSULE EXTENDED RELEASE PO SCH (11:03)
[2016-11-21] MEDS: LISINOPRIL 10MG TABLET PO SCH ×2 (11:03→22:23)
[2016-11-21] MEDS: AMLODIPINE 5MG TABLET PO SCH ×2 (11:03→22:22)
[2016-11-21] MEDS: CARVEDILOL 3.125 MG TABLET PO SCH ×2 (11:03→22:21)
[2016-11-21] MEDS: ASPIRIN 81MG EC TABLET PO SCH (11:04)
[2016-11-21] MEDS: MEMANTINE HCL 5MG TABLET PO SCH (11:04)
[2016-11-21] MEDS: FUROSEMIDE 40MG/4ML VIAL IVP SCH ×2 (11:04→17:39)
[2016-11-21] MEDS: APIXABAN 2.5 MG TABLET PO SCH ×2 (11:19→17:39)
[2016-11-21] MEDS ORDERED: POTASSIUM CHLORIDE 20MEQ TABLET SR PO NR (13:00)
[2016-11-21] MEDS: LACTULOSE 20G/30ML UDC PO SCH (19:10)
[2016-11-21] MEDS: ATORVASTATIN CALCIUM 20MG TABLET PO SCH (22:21)
[2016-11-21] MEDS: DIPHENHYDRAMINE 25MG CAPSULE PO PRN (22:22)
[2016-11-21] MEDS: ACETAMINOPHEN 325MG TABLET PO PRN (22:22)
[2016-11-22] MEDS: IPRATROPIUM/ALBUTEROL 0.5-3(2.5)MG/3ML NEB INH SCH ×4 (01:45→20:47)
[2016-11-22 06:45] LABS: BASOPHILS % 0.7 % (0.0-2.0); HEMATOCRIT. 39.4 % (42.0-52.0); HEMOGLOBIN. 13.1 g/dL (14.0-18.0); MEAN CORPUSCULAR HEMOGLOBIN 27.3 pg (28.0-32.0); MEAN CORPUSCULAR VOLUME 82.4 fL (80.0-94.0); MEAN PLATELET VOLUME 8.2 fl (7.4-10.4); MONOCYTES % 11.1 % (2.0-8.0); NEUTROPHILS % 60.2 % (40.0-76.0); PLATELET 183 x1000/uL (130-400); RED BLOOD CELL COUNT 4.78 mill/uL (4.7-6.1); RED CELL DISTRIBUTION WIDTH 16.4 % (11.6-14.6)
[2016-11-22] MEDS: OMEPRAZOLE 20MG CAPSULE EXTENDED RELEASE PO SCH (08:28)
[2016-11-22] MEDS: FUROSEMIDE 40MG/4ML VIAL IVP SCH (08:28)
[2016-11-22] MEDS: LACTULOSE 20G/30ML UDC PO SCH (08:28)
[2016-11-22] MEDS: LISINOPRIL 10MG TABLET PO SCH ×2 (08:29→20:49)
[2016-11-22] MEDS: MEMANTINE HCL 5MG TABLET PO SCH (08:29)
[2016-11-22] MEDS: ASPIRIN 81MG EC TABLET PO SCH (08:29)
[2016-11-22] MEDS: APIXABAN 2.5 MG TABLET PO SCH ×2 (08:29→17:31)
[2016-11-22] MEDS: AMLODIPINE 5MG TABLET PO SCH ×2 (08:29→20:49)
[2016-11-22] MEDS: CARVEDILOL 3.125 MG TABLET PO SCH ×2 (08:30→20:49)
[2016-11-22] MEDS: HYDROCODONE/ACETAMINOPHEN 5/325MG TABLET PO PRN (11:17)
[2016-11-22 16:07] LABS: CLARITY URINE CLEAR (CLEAR); COLOR URINE YELLOW (YELLOW); KETONES URINE NEGATIVE (NEGATIVE); LEUKOCYTE ESTERASE URINE NEGATIVE (NEGATIVE); NITRITE URINE NEGATIVE (NEGATIVE); OCCULT BLOOD URINE NEGATIVE (NEGATIVE); PH URINE 5.5 (4.5-8.0); PROTEIN URINE NEGATIVE (NEGATIVE); SPECIFIC GRAVITY URINE 1.012 (1.005-1.030); UROBILINOGEN URINE 0.2 E.U./dL (0.2-1.0)
[2016-11-22 16:28] LABS: *AMPHETAMINES SCREEN URINE NEGATIVE (NEGATIVE); *BARBITURATES SCREEN URINE NEGATIVE (NEGATIVE); *BENZODIAZEPINES SCREEN URINE NEGATIVE (NEGATIVE); *COCAINE SCREEN URINE NEGATIVE (NEGATIVE); CANNABINOID URINE SCREEN NEGATIVE (NEGATIVE); METHADONE URINE SCREEN NEGATIVE (NEGATIVE); OPIATES URINE SCREEN PRESUMTIVE POSITIVE (NEGATIVE); PHENCYCLIDINE URINE SCREEN NEGATIVE (NEGATIVE)
[2016-11-22] MEDS: ATORVASTATIN CALCIUM 20MG TABLET PO SCH (20:49)
[2016-11-23] MEDS: IPRATROPIUM/ALBUTEROL 0.5-3(2.5)MG/3ML NEB INH SCH ×4 (02:35→19:49)
[2016-11-23 06:42] LABS: BASOPHILS % 0.8 % (0.0-2.0); EOSINOPHILS % 6.5 % (0.0-5.0); HEMOGLOBIN. 13.2 g/dL (14.0-18.0); LYMPHOCYTES % 17.5 % (20.0-50.0); MEAN CORPUSCULAR HEMOGLOBIN 27.3 pg (28.0-32.0); MEAN CORPUSCULAR VOLUME 82.5 fL (80.0-94.0); MEAN PLATELET VOLUME 8.1 fl (7.4-10.4); MONOCYTES % 10.8 % (2.0-8.0); NEUTROPHILS % 64.4 % (40.0-76.0); PLATELET 201 x1000/uL (130-400); RED BLOOD CELL COUNT 4.85 mill/uL (4.7-6.1); RED CELL DISTRIBUTION WIDTH 16.1 % (11.6-14.6)
[2016-11-23] MEDS: CARVEDILOL 3.125 MG TABLET PO SCH ×2 (08:32→20:21)
[2016-11-23] MEDS: FAMOTIDINE 20MG TABLET PO SCH (08:32)
[2016-11-23] MEDS: AMLODIPINE 5MG TABLET PO SCH ×2 (08:32→20:25)
[2016-11-23] MEDS: APIXABAN 2.5 MG TABLET PO SCH ×2 (08:32→16:59)
[2016-11-23] MEDS: LACTULOSE 20G/30ML UDC PO SCH (08:32)
[2016-11-23] MEDS: MEMANTINE HCL 5MG TABLET PO SCH (08:32)
[2016-11-23] MEDS: ASPIRIN 81MG EC TABLET PO SCH (08:32)
[2016-11-23] MEDS ORDERED: POTASSIUM CHLORIDE 20MEQ TABLET SR PO NR (13:15)
[2016-11-23] MEDS: ATORVASTATIN CALCIUM 20MG TABLET PO SCH (20:25)
[2016-11-24] MEDS: IPRATROPIUM/ALBUTEROL 0.5-3(2.5)MG/3ML NEB INH SCH ×4 (01:55→20:48)
[2016-11-24 07:17] LABS: BASOPHILS % 0.6 % (0.0-2.0); EOSINOPHILS % 9.1 % (0.0-5.0); HEMATOCRIT. 41.6 % (42.0-52.0); HEMOGLOBIN. 13.5 g/dL (14.0-18.0); LYMPHOCYTES % 17.5 % (20.0-50.0); MEAN CORPUSCULAR HEMOGLOBIN 26.9 pg (28.0-32.0); MEAN PLATELET VOLUME 8.1 fl (7.4-10.4); MONOCYTES % 12.4 % (2.0-8.0); NEUTROPHILS % 60.4 % (40.0-76.0); PLATELET 191 x1000/uL (130-400); RED BLOOD CELL COUNT 5.02 mill/uL (4.7-6.1); RED CELL DISTRIBUTION WIDTH 16.3 % (11.6-14.6)
[2016-11-24] MEDS: MEMANTINE HCL 5MG TABLET PO SCH (09:26)
[2016-11-24] MEDS: ASPIRIN 81MG EC TABLET PO SCH (09:27)
[2016-11-24] MEDS: AMLODIPINE 5MG TABLET PO SCH ×2 (09:27→22:06)
[2016-11-24] MEDS: FAMOTIDINE 20MG TABLET PO SCH (09:27)
[2016-11-24] MEDS: CARVEDILOL 3.125 MG TABLET PO SCH ×2 (09:27→21:00)
[2016-11-24] MEDS: APIXABAN 2.5 MG TABLET PO SCH ×2 (09:27→17:00)
[2016-11-24] MEDS: HYDROCODONE/ACETAMINOPHEN 5/325MG TABLET PO PRN ×2 (09:27→18:11)
[2016-11-24] MEDS: LACTULOSE 20G/30ML UDC PO SCH (09:27)
[2016-11-24] MEDS: FUROSEMIDE 40MG TABLET PO SCH (09:45)
[2016-11-24] MEDS: ATORVASTATIN CALCIUM 20MG TABLET PO SCH (22:06)
[2016-11-24] MEDS: DIPHENHYDRAMINE 25MG CAPSULE PO PRN (22:06)
[2016-11-25] MEDS: IPRATROPIUM/ALBUTEROL 0.5-3(2.5)MG/3ML NEB INH SCH ×4 (01:16→20:37)
[2016-11-25 05:39] LABS: BASOPHILS % 0.5 % (0.0-2.0); EOSINOPHILS % 9.8 % (0.0-5.0); HEMATOCRIT. 39.9 % (42.0-52.0); HEMOGLOBIN. 13.2 g/dL (14.0-18.0); LYMPHOCYTES % 17.6 % (20.0-50.0); MEAN CORPUSCULAR HEMOGLOBIN 27.2 pg (28.0-32.0); MEAN CORPUSCULAR VOLUME 82.4 fL (80.0-94.0); MEAN PLATELET VOLUME 7.9 fl (7.4-10.4); MONOCYTES % 10.8 % (2.0-8.0); NEUTROPHILS % 61.3 % (40.0-76.0); PLATELET 201 x1000/uL (130-400); RED BLOOD CELL COUNT 4.84 mill/uL (4.7-6.1)
[2016-11-25] MEDS: LACTULOSE 20G/30ML UDC PO SCH (09:45)
[2016-11-25] MEDS: CARVEDILOL 3.125 MG TABLET PO SCH ×2 (09:47→21:00)
[2016-11-25] MEDS: ASPIRIN 81MG EC TABLET PO SCH (09:47)
[2016-11-25] MEDS: APIXABAN 2.5 MG TABLET PO SCH ×2 (09:48→18:46)
[2016-11-25] MEDS: MEMANTINE HCL 5MG TABLET PO SCH (09:48)
[2016-11-25] MEDS: FUROSEMIDE 40MG TABLET PO SCH (09:48)
[2016-11-25] MEDS: FAMOTIDINE 20MG TABLET PO SCH (09:49)
[2016-11-25] MEDS: AMLODIPINE 5MG TABLET PO SCH ×2 (09:49→21:07)
[2016-11-25] MEDS: ATORVASTATIN CALCIUM 20MG TABLET PO SCH (21:07)
[2016-11-25] MEDS: DIPHENHYDRAMINE 25MG CAPSULE PO PRN (21:09)
[2016-11-26] MEDS: IPRATROPIUM/ALBUTEROL 0.5-3(2.5)MG/3ML NEB INH SCH ×4 (02:26→21:11)
[2016-11-26] MEDS: MEMANTINE HCL 5MG TABLET PO SCH (09:15)
[2016-11-26] MEDS: CARVEDILOL 3.125 MG TABLET PO SCH ×2 (09:15→20:51)
[2016-11-26] MEDS: FAMOTIDINE 20MG TABLET PO SCH (09:15)
[2016-11-26] MEDS: APIXABAN 2.5 MG TABLET PO SCH ×2 (09:16→17:06)
[2016-11-26] MEDS: FUROSEMIDE 40MG TABLET PO SCH (09:16)
[2016-11-26] MEDS: LACTULOSE 20G/30ML UDC PO SCH (09:16)
[2016-11-26] MEDS: AMLODIPINE 5MG TABLET PO SCH ×2 (09:16→20:52)
[2016-11-26] MEDS: ASPIRIN 81MG EC TABLET PO SCH (09:16)
[2016-11-26] MEDS: DIPHENHYDRAMINE 25MG CAPSULE PO PRN (20:51)
[2016-11-26] MEDS: ATORVASTATIN CALCIUM 20MG TABLET PO SCH (20:51)
[2016-11-27] MEDS: IPRATROPIUM/ALBUTEROL 0.5-3(2.5)MG/3ML NEB INH SCH ×4 (01:41→22:22)
[2016-11-27 06:04] LABS: BASOPHILS % 0.5 % (0.0-2.0); EOSINOPHILS % 11.4 % (0.0-5.0); HEMATOCRIT. 43.8 % (42.0-52.0); HEMOGLOBIN. 14.5 g/dL (14.0-18.0); LYMPHOCYTES % 19.6 % (20.0-50.0); MEAN CORPUSCULAR HEMOGLOBIN 27.3 pg (28.0-32.0); MEAN CORPUSCULAR VOLUME 82.7 fL (80.0-94.0); MEAN PLATELET VOLUME 7.9 fl (7.4-10.4); MONOCYTES % 12.1 % (2.0-8.0); NEUTROPHILS % 56.4 % (40.0-76.0); PLATELET 215 x1000/uL (130-400)
[2016-11-27] MEDS: LACTULOSE 20G/30ML UDC PO SCH (08:48)
[2016-11-27] MEDS: ASPIRIN 81MG EC TABLET PO SCH (08:49)
[2016-11-27] MEDS: MEMANTINE HCL 5MG TABLET PO SCH (08:49)
[2016-11-27] MEDS: ACETAMINOPHEN 325MG TABLET PO PRN (08:49)
[2016-11-27] MEDS: CARVEDILOL 3.125 MG TABLET PO SCH ×2 (08:49→20:46)
[2016-11-27] MEDS: FAMOTIDINE 20MG TABLET PO SCH (08:49)
[2016-11-27] MEDS: FUROSEMIDE 40MG TABLET PO SCH (08:50)
[2016-11-27] MEDS: APIXABAN 2.5 MG TABLET PO SCH ×2 (08:50→17:44)
[2016-11-27] MEDS: AMLODIPINE 5MG TABLET PO SCH ×2 (08:50→20:46)
[2016-11-27] MEDS: ATORVASTATIN CALCIUM 20MG TABLET PO SCH (20:46)
[2016-11-28] MEDS: IPRATROPIUM/ALBUTEROL 0.5-3(2.5)MG/3ML NEB INH SCH ×3 (02:43→13:47)
[2016-11-28 05:21] LABS: BASOPHILS % 0.7 % (0.0-2.0); EOSINOPHILS % 10.4 % (0.0-5.0); HEMATOCRIT. 44.8 % (42.0-52.0); HEMOGLOBIN. 14.6 g/dL (14.0-18.0); LYMPHOCYTES % 18.9 % (20.0-50.0); MEAN CORPUSCULAR HEMOGLOBIN 27.2 pg (28.0-32.0); MEAN CORPUSCULAR VOLUME 83.2 fL (80.0-94.0); MEAN PLATELET VOLUME 8.1 fl (7.4-10.4); MONOCYTES % 9.9 % (2.0-8.0); NEUTROPHILS % 60.1 % (40.0-76.0); PLATELET 238 x1000/uL (130-400); RED BLOOD CELL COUNT 5.38 mill/uL (4.7-6.1)
[2016-11-28] MEDS: LACTULOSE 20G/30ML UDC PO SCH (09:05)
[2016-11-28] MEDS: AMLODIPINE 5MG TABLET PO SCH (09:06)
[2016-11-28] MEDS: CARVEDILOL 3.125 MG TABLET PO SCH (09:06)
[2016-11-28] MEDS: FAMOTIDINE 20MG TABLET PO SCH (09:07)
[2016-11-28] MEDS: FUROSEMIDE 40MG TABLET PO SCH (09:07)
[2016-11-28] MEDS: ASPIRIN 81MG EC TABLET PO SCH (09:07)
[2016-11-28] MEDS: MEMANTINE HCL 5MG TABLET PO SCH (09:07)
[2016-11-28] MEDS: APIXABAN 2.5 MG TABLET PO SCH ×2 (09:08→17:50)
[2016-11-28] MEDS: ACETAMINOPHEN 325MG TABLET PO PRN (11:40)
[2016-11-28 16:00] VITALS: BP 120/72
[2017-01-16] MEDS ORDERED: ACET1TAB14 PO (23:36)
== END 2016-11-28 18:45 | disposition home health service (06) | DRG 291 ==
LOC: 7WST 11:06
PROVIDERS: ADMIT Specialist; ATTEND Family Medicine Adult Medicine
DX: I13.0 Hypertensive heart and chronic kidney disease with heart failure and stage 1 through stage 4 chronic kidney disease, or unspecified chronic kidney disease (principal); I50.23 Acute on chronic systolic (congestive) heart failure; J96.01 Acute respiratory failure with hypoxia; E46 Unspecified protein-calorie malnutrition; N17.9 Acute kidney failure, unspecified; I42.9 Cardiomyopathy, unspecified; N18.9 Chronic kidney disease, unspecified; I49.5 Sick sinus syndrome; F03.90 Unspecified dementia, unspecified severity, without behavioral disturbance, psychotic disturbance, mood disturbance, and anxiety; I71.2 Thoracic aortic aneurysm, without rupture; D64.9 Anemia, unspecified; E11.22 Type 2 diabetes mellitus with diabetic chronic kidney disease; R26.9 Unspecified abnormalities of gait and mobility; I25.10 Atherosclerotic heart disease of native coronary artery without angina pectoris; I48.0 Paroxysmal atrial fibrillation; I48.2 Chronic atrial fibrillation; J44.9 Chronic obstructive pulmonary disease, unspecified; N40.0 Benign prostatic hyperplasia without lower urinary tract symptoms; Z66 Do not resuscitate; Z86.73 Personal history of transient ischemic attack (TIA), and cerebral infarction without residual deficits; Z79.01 Long term (current) use of anticoagulants; Z82.3 Family history of stroke; Z85.038 Personal history of other malignant neoplasm of large intestine; Z95.810 Presence of automatic (implantable) cardiac defibrillator; Z90.49 Acquired absence of other specified parts of digestive tract; Z88.0 Allergy status to penicillin; Z88.1 Allergy status to other antibiotic agents; Z88.8 Allergy status to other drugs, medicaments and biological substances
CPT/HCPCS: 36415; 36600; 71010; 74000; 80048; 80061; 80305; 81003; 82375; 82805; 83735; 83880; 84484; 85025; 85027; 93005; 93306; 93970; 94640; 97110; 97116; 97162; 97166; 97530; 97535; A6261; C9113; G0482; J1940; J2405; J7620; Q0163

== ENCOUNTER → 2017-01-26 | Day surgery (SDC) | payer MEDICARE, MEDICAID ==
[~2017-01-26] VITALS: Ht 180.3 cm; Wt 79.4 kg
[~2017-01-26] MED LIST changes: +ALPR-339 PO; +ESMOLOL HCL 10MG/ML 10ML VIAL IV ONE; +LIDOCAINE HCL 1% 20ML VIAL (Pyxis) INJ ONE; +ONDANSETRON HCL 4MG/2ML VIAL IV PRN; +PROPOFOL 200MG/20ML VIAL IV ONE; +SIMETHICONE 40 MG/0.6 ML 30ML ONE; +SODIUM CHLORIDE 0.9% 1,000 ML IV SCH; +SODIUM CHLORIDE 0.9% 500 ML IV ONE
[2017-01-26 10:38] LABS: BASOPHILS % 0.9 % (0.0-2.0); EOSINOPHILS % 10.5 % (0.0-5.0); HEMATOCRIT. 39.8 % (42.0-52.0); HEMOGLOBIN. 12.8 g/dL (14.0-18.0); LYMPHOCYTES % 18.1 % (20.0-50.0); MEAN CORPUSCULAR HEMOGLOBIN 26.8 pg (28.0-32.0); MEAN CORPUSCULAR VOLUME 83.4 fL (80.0-94.0); MEAN PLATELET VOLUME 7.8 fl (7.4-10.4); NEUTROPHILS % 61.5 % (40.0-76.0); PLATELET 216 x1000/uL (130-400); RED BLOOD CELL COUNT 4.77 mill/uL (4.7-6.1); RED CELL DISTRIBUTION WIDTH 16.2 % (11.6-14.6)
[2017-01-26 10:45] LABS: INR 1.1; PARTIAL THROMBOPLASTIN TIME 25.9 sec (23.4-31.0)
== END | disposition home or self-care (01) ==
LOC: OR 07:53
PROVIDERS: ATTEND Internal Medicine Gastroenterology
DX: K22.70 Barrett's esophagus without dysplasia (principal); K29.70 Gastritis, unspecified, without bleeding; E78.5 Hyperlipidemia, unspecified; I25.10 Atherosclerotic heart disease of native coronary artery without angina pectoris; I13.0 Hypertensive heart and chronic kidney disease with heart failure and stage 1 through stage 4 chronic kidney disease, or unspecified chronic kidney disease; N18.9 Chronic kidney disease, unspecified; I48.2 Chronic atrial fibrillation; I50.9 Heart failure, unspecified; J44.9 Chronic obstructive pulmonary disease, unspecified; K22.2 Esophageal obstruction; K44.9 Diaphragmatic hernia without obstruction or gangrene; Z79.01 Long term (current) use of anticoagulants; Z79.82 Long term (current) use of aspirin; Z86.73 Personal history of transient ischemic attack (TIA), and cerebral infarction without residual deficits; Z95.0 Presence of cardiac pacemaker; F03.90 Unspecified dementia, unspecified severity, without behavioral disturbance, psychotic disturbance, mood disturbance, and anxiety; Z88.0 Allergy status to penicillin; Z88.8 Allergy status to other drugs, medicaments and biological substances; Z79.899 Other long term (current) drug therapy; E11.22 Type 2 diabetes mellitus with diabetic chronic kidney disease; Z85.038 Personal history of other malignant neoplasm of large intestine; Z86.711 Personal history of pulmonary embolism; D63.1 Anemia in chronic kidney disease
CPT/HCPCS: 36415; 43235; 71010; 80048; 85025; 85610; 85730; 93005; J3490; J7040; J2704

== ENCOUNTER 2017-02-12 11:03 | Inpatient (IN) | payer MEDICARE, MEDICAID ==
[~2017-02-12] VITALS: Ht 177.8 cm; Wt 84.8 kg
[~2017-02-12 11:03] MED LIST changes: -ALPR-339 PO; -ESMOLOL HCL 10MG/ML 10ML VIAL IV ONE; -LIDOCAINE HCL 1% 20ML VIAL (Pyxis) INJ ONE; -ONDANSETRON HCL 4MG/2ML VIAL IV PRN; -PROPOFOL 200MG/20ML VIAL IV ONE; -SIMETHICONE 40 MG/0.6 ML 30ML ONE; -SODIUM CHLORIDE 0.9% 1,000 ML IV SCH; -SODIUM CHLORIDE 0.9% 500 ML IV ONE
[2017-02-12 11:38] LABS: BASOPHILS % 0.8 % (0.0-2.0); HEMATOCRIT. 39.2 % (42.0-52.0); HEMOGLOBIN. 12.6 g/dL (14.0-18.0); LYMPHOCYTES % 17.3 % (20.0-50.0); MEAN CORPUSCULAR HEMOGLOBIN 26.6 pg (28.0-32.0); MEAN CORPUSCULAR VOLUME 82.5 fL (80.0-94.0); MONOCYTES % 7.6 % (2.0-8.0); NEUTROPHILS % 71.3 % (40.0-76.0); PLATELET 216 x1000/uL (130-400); RED BLOOD CELL COUNT 4.75 mill/uL (4.7-6.1); RED CELL DISTRIBUTION WIDTH 16.1 % (11.6-14.6)
[2017-02-12 11:49] LABS: AMMONIA 15 uMol/L (<32)
[2017-02-12 11:51] LABS: CARBON DIOXIDE 24 mEq/L (21-32); CHLORIDE 110 mEq/L (98-107); INR 1.3
[2017-02-12 18:38] LABS: CLARITY URINE CLEAR (CLEAR); COLOR URINE YELLOW (YELLOW); GLUCOSE URINE NEGATIVE (NEGATIVE); KETONES URINE TRACE (NEGATIVE); LEUKOCYTE ESTERASE URINE NEGATIVE (NEGATIVE); NITRITE URINE NEGATIVE (NEGATIVE); OCCULT BLOOD URINE NEGATIVE (NEGATIVE); PROTEIN URINE 1+ (NEGATIVE); SPECIFIC GRAVITY URINE 1.021 (1.005-1.030)
[2017-02-12] MEDS ORDERED: ALBUTEROL (0.083%) 2.5MG/3ML NEB HHN STA (20:40)
[2017-02-12] MEDS ORDERED: IPRATROPIUM BROMIDE (0.02%) 0.5MG/2.5ML NEB HHN STA (20:40)
[2017-02-12] MEDS ORDERED: METHYLPREDNISOLONE SOD SUCC 125 MG/2 ML VIAL IV STA (20:40)
[2017-02-12] MEDS ORDERED: MAGNESIUM 2 G PREMIX 50 ML IV ONE (20:45)
[2017-02-12] MEDS ORDERED: IPRATROPIUM/ALBUTEROL 0.5-3(2.5)MG/3ML NEB ONE (20:59)
[2017-02-12] MEDS ORDERED: ALBUTEROL (0.5%) 2.5MG/0.5ML NEB HHN ONE (21:00)
[2017-02-12] MEDS ORDERED: ZOLPIDEM TARTRATE 5MG TABLET PO PRN (21:00)
[2017-02-12 23:00] VITALS: BP 126/90
[2017-02-12] MEDS ORDERED: ACETAMINOPHEN 325MG TABLET PO PRN (23:30)
[2017-02-12] MEDS ORDERED: DOCUSATE SODIUM 100MG CAPSULE PO PRN (23:30)
[2017-02-12] MEDS ORDERED: MAGNESIUM/ALUMINUM HYDROXIDE/SIMETHICONE 30ML UDC PO PRN (23:30)
[2017-02-12] MEDS ORDERED: IPRATROPIUM/ALBUTEROL 0.5-3(2.5)MG/3ML NEB INH PRN (23:30)
[2017-02-12] MEDS ORDERED: CLONIDINE 0.1MG TABLET PO PRN (23:30)
[2017-02-12] MEDS ORDERED: ONDANSETRON HCL 4MG/2ML VIAL IV PRN (23:30)
[2017-02-12 23:48] VITALS: BP 126/90
[2017-02-13 04:00] VITALS: BP 144/94
[2017-02-13] MEDS: OMEPRAZOLE 20MG CAPSULE EXTENDED RELEASE PO SCH (05:39)
[2017-02-13] MEDS ORDERED: OMEPRAZOLE 20MG CAPSULE EXTENDED RELEASE PO SCH (06:45)
[2017-02-13 07:54] LABS: *AMPHETAMINES SCREEN URINE NEGATIVE (NEGATIVE); *BARBITURATES SCREEN URINE NEGATIVE (NEGATIVE); *BENZODIAZEPINES SCREEN URINE NEGATIVE (NEGATIVE); *COCAINE SCREEN URINE NEGATIVE (NEGATIVE); CANNABINOID URINE SCREEN NEGATIVE (NEGATIVE); METHADONE URINE SCREEN NEGATIVE (NEGATIVE); OPIATES URINE SCREEN NEGATIVE (NEGATIVE); PHENCYCLIDINE URINE SCREEN NEGATIVE (NEGATIVE)
[2017-02-13 08:00] VITALS: BP 149/89
[2017-02-13 08:37] LABS: BASOPHILS % 0.1 % (0.0-2.0); EOSINOPHILS % 0.1 % (0.0-5.0); HEMATOCRIT. 39.3 % (42.0-52.0); HEMOGLOBIN. 12.6 g/dL (14.0-18.0); LYMPHOCYTES % 11.2 % (20.0-50.0); MEAN CORPUSCULAR HEMOGLOBIN 26.9 pg (28.0-32.0); MEAN CORPUSCULAR VOLUME 83.7 fL (80.0-94.0); MEAN PLATELET VOLUME 8.5 fl (7.4-10.4); MONOCYTES % 2.2 % (2.0-8.0); NEUTROPHILS % 86.4 % (40.0-76.0); PLATELET 211 x1000/uL (130-400); RED BLOOD CELL COUNT 4.69 mill/uL (4.7-6.1); RED CELL DISTRIBUTION WIDTH 16.6 % (11.6-14.6)
[2017-02-13] MEDS ORDERED: ASPIRIN 81MG TABLET PO SCH (09:00)
[2017-02-13] MEDS: LISINOPRIL 10MG TABLET PO SCH (09:00)
[2017-02-13] MEDS: MEMANTINE HCL 5MG TABLET PO SCH (09:14)
[2017-02-13] MEDS: APIXABAN 2.5 MG TABLET PO SCH ×2 (09:14→17:13)
[2017-02-13] MEDS: FUROSEMIDE 40MG TABLET PO SCH (09:14)
[2017-02-13 12:00] VITALS: BP 151/92
[2017-02-13] MEDS ORDERED: PNEUMOCOCCAL 23-VAL P-SAC VAC 0.5 ML IM ONE (12:00)
[2017-02-13] MEDS ORDERED: LACTULOSE 20G/30ML UDC PO NR (12:45)
[2017-02-13] MEDS ORDERED: ENOXAPARIN 30MG/0.3ML SYR SUBCUT SCH (13:30)
[2017-02-13 16:00] VITALS: BP 142/70
[2017-02-13 20:00] VITALS: BP 146/86
[2017-02-13] MEDS ORDERED: ATORVASTATIN CALCIUM 20MG TABLET PO SCH (21:00)
[2017-02-14] VITALS: BP 126/83
[2017-02-14 04:00] VITALS: BP 146/89
[2017-02-14] MEDS: OMEPRAZOLE 20MG CAPSULE EXTENDED RELEASE PO SCH (05:53)
[2017-02-14] MEDS ORDERED: OMEPRAZOLE 20MG CAPSULE EXTENDED RELEASE PO SCH (06:45)
[2017-02-14 08:00] VITALS: BP 145/87
[2017-02-14] MEDS: LISINOPRIL 10MG TABLET PO SCH (08:22)
[2017-02-14] MEDS: FUROSEMIDE 40MG TABLET PO SCH (08:22)
[2017-02-14] MEDS: MEMANTINE HCL 5MG TABLET PO SCH (08:22)
[2017-02-14] MEDS: APIXABAN 2.5 MG TABLET PO SCH ×2 (08:23→18:27)
[2017-02-14] MEDS ORDERED: ENOXAPARIN 30MG/0.3ML SYR SUBCUT SCH (09:00)
[2017-02-14] MEDS ORDERED: ASPIRIN 81MG EC TABLET PO SCH (09:00)
[2017-02-14 12:00] VITALS: BP 141/94
[2017-02-14 14:10] VITALS: BP 140/90
[2017-02-14 16:00] VITALS: BP 137/87
== END 2017-02-14 19:20 | disposition home health service (06) | DRG 391 ==
LOC: ER 12:04 → 5WST 18:49 → EDBEDREQ 20:47 → EDBEDREQSVC 20:47 → ENRESERV 21:10
PROVIDERS: ADMIT Family Medicine Adult Medicine; ATTEND Family Medicine Adult Medicine
DX: K29.70 Gastritis, unspecified, without bleeding (principal); G93.40 Encephalopathy, unspecified; I42.0 Dilated cardiomyopathy; I13.0 Hypertensive heart and chronic kidney disease with heart failure and stage 1 through stage 4 chronic kidney disease, or unspecified chronic kidney disease; F03.90 Unspecified dementia, unspecified severity, without behavioral disturbance, psychotic disturbance, mood disturbance, and anxiety; I50.9 Heart failure, unspecified; E11.22 Type 2 diabetes mellitus with diabetic chronic kidney disease; I48.1 Persistent atrial fibrillation; D63.8 Anemia in other chronic diseases classified elsewhere; N18.9 Chronic kidney disease, unspecified; E78.5 Hyperlipidemia, unspecified; I25.10 Atherosclerotic heart disease of native coronary artery without angina pectoris; J44.9 Chronic obstructive pulmonary disease, unspecified; Z66 Do not resuscitate; Z86.73 Personal history of transient ischemic attack (TIA), and cerebral infarction without residual deficits; Z86.79 Personal history of other diseases of the circulatory system; Z95.0 Presence of cardiac pacemaker; Z88.1 Allergy status to other antibiotic agents; Z88.0 Allergy status to penicillin; Z88.8 Allergy status to other drugs, medicaments and biological substances; Z79.82 Long term (current) use of aspirin; Z79.899 Other long term (current) drug therapy
CPT/HCPCS: 36415; 74000; 80048; 80053; 80305; 81001; 82140; 83735; 85025; 85610; 90732; 92610; 93005; 94644; 96365; 96375; 97110; 97116; 97162; 97530; 99291; G0482; J2405; J2930; J3475; J7611; J7620

== ENCOUNTER 2017-02-21 12:12 | Inpatient (IN) | payer MEDICARE, MEDICAID ==
[~2017-02-21] VITALS: Ht 180.3 cm; Wt 83.1 kg
[2017-02-21] VITALS (7 sets, daily range): BP systolic 124–162; BP diastolic 66–94
[~2017-02-21 12:12] MED LIST changes: -AMLO5TAB88 PO; -CARV3.1242 PO
[2017-02-21] MEDS ORDERED: ASPIRIN 81MG TABLET PO STA (13:33)
[2017-02-21] MEDS ORDERED: METHYLPREDNISOLONE SOD SUCC 125 MG/2 ML VIAL IV STA (13:33)
[2017-02-21] MEDS ORDERED: MAGNESIUM/ALUMINUM HYDROXIDE/SIMETHICONE 30ML UDC PO PRN (13:45)
[2017-02-21] MEDS ORDERED: LEVOFLOXACIN 750MG PREMIX 150 ML IV ONE (13:45)
[2017-02-21] MEDS ORDERED: GUAIFENESIN 200MG/10ML SUGAR FREE UDC PO PRN (13:45)
[2017-02-21] MEDS ORDERED: ONDANSETRON HCL 4MG/2ML VIAL IV PRN (13:45)
[2017-02-21] MEDS ORDERED: DOCUSATE SODIUM 100MG CAPSULE PO PRN (13:45)
[2017-02-21] MEDS ORDERED: IPRATROPIUM/ALBUTEROL 0.5-3(2.5)MG/3ML NEB INH PRN (13:45)
[2017-02-21] MEDS ORDERED: IPRATROPIUM/ALBUTEROL 0.5-3(2.5)MG/3ML NEB HHN ONE (13:45)
[2017-02-21] MEDS ORDERED: CLONIDINE 0.1MG TABLET PO PRN (13:45)
[2017-02-21] MEDS ORDERED: ACETAMINOPHEN 325MG TABLET PO PRN (13:45)
[2017-02-21 14:03] LABS: HEMOGLOBIN. 13.9 g/dL (14.0-18.0); MEAN CORPUSCULAR HEMOGLOBIN 27.4 pg (28.0-32.0); MEAN CORPUSCULAR VOLUME 83.1 fL (80.0-94.0); MEAN PLATELET VOLUME 8.1 fl (7.4-10.4); PLATELET 202 x1000/uL (130-400); RED BLOOD CELL COUNT 5.06 mill/uL (4.7-6.1); RED CELL DISTRIBUTION WIDTH 16.6 % (11.6-14.6)
[2017-02-21 14:15] LABS: CARBON DIOXIDE 26 mEq/L (21-32); CHLORIDE 109 mEq/L (98-107); CREATINE KINASE 239 IU/L (39-308)
[2017-02-21 14:21] LABS: BG BASE EXCESS -4.7 mmol/L (-2.0-2.0); BG CARBOXYHEMOGLOBIN 0.8 % (0.5-1.5); BG DEOXYHEMOGLOBIN 1.5 % (0.0-5.0); BG FRACTION INSPIRED OXYGEN 50; BG HCO3 ACT 19.8 mmol/L (22.0-26.0); BG METHEMOGLOBIN 0.4 % (0.0-1.5); BG OXYGEN SATURATION 98.5 % (92.0-98.5); BG OXYHEMOGLOBIN 97.3 % (94.0-97.0); BG PCO2 34.8 mmHg (35.0-45.0); BG PH 7.372 (7.350-7.450); BG PO2 129.1 mmHg (75.0-100.0); BG SAMPLE SITE RIGHT BRACHIAL; BG TOTAL HEMOGLOBIN 13.7 g/dL (12.0-18.0)
[2017-02-21 14:24] LABS: PLATELET ESTIMATE NORMAL
[2017-02-21 15:45] LABS: INR 1.3; PARTIAL THROMBOPLASTIN TIME 27.1 sec (23.4-31.0); PROTHROMBIN TIME 13.3 sec (9.4-11.6)
[2017-02-21] MEDS ORDERED: FUROSEMIDE 40MG/4ML VIAL IVP ONE (15:45)
[2017-02-21] MEDS: ATORVASTATIN CALCIUM 20MG TABLET PO SCH (20:50)
[2017-02-21] MEDS ORDERED: ZOLPIDEM TARTRATE 5MG TABLET PO PRN (21:00)
[2017-02-22] VITALS (21 sets, daily range): BP systolic 92–167; BP diastolic 41–102
[2017-02-22] MEDS: OMEPRAZOLE 20MG CAPSULE EXTENDED RELEASE PO SCH (05:55)
[2017-02-22 06:37] LABS: HEMATOCRIT. 38.8 % (42.0-52.0); HEMOGLOBIN. 12.5 g/dL (14.0-18.0); LYMPHOCYTES % 10.3 % (20.0-50.0); MEAN CORPUSCULAR HEMOGLOBIN 26.2 pg (28.0-32.0); MEAN CORPUSCULAR VOLUME 81.3 fL (80.0-94.0); MEAN PLATELET VOLUME 8.3 fl (7.4-10.4); MONOCYTES % 4.5 % (2.0-8.0); NEUTROPHILS % 85.2 % (40.0-76.0); PLATELET 207 x1000/uL (130-400); RED BLOOD CELL COUNT 4.78 mill/uL (4.7-6.1); RED CELL DISTRIBUTION WIDTH 16.2 % (11.6-14.6)
[2017-02-22] MEDS ORDERED: FUROSEMIDE 40MG TABLET PO SCH (09:00)
[2017-02-22] MEDS: MEMANTINE HCL 10MG TABLET PO SCH (09:24)
[2017-02-22] MEDS: FUROSEMIDE 40MG/4ML VIAL IV SCH (09:25)
[2017-02-22] MEDS: ASPIRIN 81MG EC TABLET PO SCH (09:40)
[2017-02-22] MEDS: APIXABAN 2.5 MG TABLET PO SCH ×2 (09:40→17:18)
[2017-02-22] MEDS: LISINOPRIL 10MG TABLET PO SCH (09:40)
[2017-02-22] MEDS: METHYLPREDNISOLONE SOD SUCC 40 MG/ML VIAL IV SCH ×2 (15:24→21:25)
[2017-02-22] MEDS: BUDESONIDE 0.5MG/2ML NEB HHN SCH (20:54)
[2017-02-22] MEDS: IPRATROPIUM/ALBUTEROL 0.5-3(2.5)MG/3ML NEB HHN SCH (20:54)
[2017-02-22] MEDS ORDERED: ATORVASTATIN CALCIUM 20MG TABLET PO SCH (21:00)
[2017-02-22] MEDS: ATORVASTATIN CALCIUM 20MG TABLET PO SCH (21:24)
[2017-02-23] VITALS (15 sets, daily range): BP systolic 101–147; BP diastolic 55–99
[2017-02-23] MEDS: IPRATROPIUM/ALBUTEROL 0.5-3(2.5)MG/3ML NEB HHN SCH ×4 (01:47→16:30)
[2017-02-23 06:04] LABS: HEMATOCRIT. 37.5 % (42.0-52.0); HEMOGLOBIN. 12.2 g/dL (14.0-18.0); MEAN CORPUSCULAR HEMOGLOBIN 26.4 pg (28.0-32.0); MEAN CORPUSCULAR VOLUME 81.3 fL (80.0-94.0); MEAN PLATELET VOLUME 7.8 fl (7.4-10.4); PLATELET 205 x1000/uL (130-400); RED BLOOD CELL COUNT 4.61 mill/uL (4.7-6.1); RED CELL DISTRIBUTION WIDTH 16.5 % (11.6-14.6)
[2017-02-23] MEDS: OMEPRAZOLE 20MG CAPSULE EXTENDED RELEASE PO SCH (06:15)
[2017-02-23] MEDS: METHYLPREDNISOLONE SOD SUCC 40 MG/ML VIAL IV SCH (06:15)
[2017-02-23] MEDS: BUDESONIDE 0.5MG/2ML NEB HHN SCH (08:34)
[2017-02-23] MEDS ORDERED: FUROSEMIDE 40MG/4ML VIAL IV SCH (09:00)
[2017-02-23] MEDS: APIXABAN 2.5 MG TABLET PO SCH (09:17)
[2017-02-23] MEDS: FUROSEMIDE 40MG/4ML VIAL IV SCH (09:17)
[2017-02-23] MEDS: MEMANTINE HCL 10MG TABLET PO SCH (09:18)
[2017-02-23] MEDS: LISINOPRIL 10MG TABLET PO SCH (09:18)
[2017-02-23] MEDS: ASPIRIN 81MG EC TABLET PO SCH (09:18)
[2017-02-23 17:42] LABS: PLATELET ESTIMATE NORMAL
[2017-02-24] MEDS ORDERED: PREDNISONE 20MG TABLET PO SCH (07:20)
== END 2017-02-23 17:14 | disposition home or self-care (01) | DRG 291 ==
LOC: ER 13:23 → 3WST 15:51 → EDBEDREQ 15:56 → ENRESERV 16:07 → 3WST 18:12
PROVIDERS: ADMIT Family Medicine Adult Medicine; ATTEND Family Medicine Adult Medicine
DX: I13.0 Hypertensive heart and chronic kidney disease with heart failure and stage 1 through stage 4 chronic kidney disease, or unspecified chronic kidney disease (principal); I50.23 Acute on chronic systolic (congestive) heart failure; J96.00 Acute respiratory failure, unspecified whether with hypoxia or hypercapnia; E87.2 Acidosis; J44.1 Chronic obstructive pulmonary disease with (acute) exacerbation; I42.0 Dilated cardiomyopathy; I49.5 Sick sinus syndrome; Z99.81 Dependence on supplemental oxygen; Z95.810 Presence of automatic (implantable) cardiac defibrillator; Z95.0 Presence of cardiac pacemaker; D63.8 Anemia in other chronic diseases classified elsewhere; F03.90 Unspecified dementia, unspecified severity, without behavioral disturbance, psychotic disturbance, mood disturbance, and anxiety; I25.10 Atherosclerotic heart disease of native coronary artery without angina pectoris; I48.2 Chronic atrial fibrillation; R56.9 Unspecified convulsions; N18.9 Chronic kidney disease, unspecified; Z66 Do not resuscitate; Z86.73 Personal history of transient ischemic attack (TIA), and cerebral infarction without residual deficits; Z86.79 Personal history of other diseases of the circulatory system; Z88.0 Allergy status to penicillin; Z88.6 Allergy status to analgesic agent; Z79.899 Other long term (current) drug therapy; Z79.82 Long term (current) use of aspirin
CPT/HCPCS: 36415; 36600; 71010; 80048; 80053; 82375; 82550; 82805; 83605; 83690; 83735; 83880; 84484; 85025; 85610; 85730; 87040; 92610; 93005; 93970; 94640; 94664; 96365; 96375; 97162; 97530; 99285; A6261; J1940; J1956; J2920; J2930; J7620; J7626; A4315

== ENCOUNTER 2017-03-23 12:39 | Inpatient (IN) | payer MEDICARE, MEDICAID ==
[~2017-03-23] VITALS: Ht 180.3 cm; Wt 79.8 kg
[2017-03-23 12:56] VITALS: BP 124/72
[2017-03-23] MEDS ORDERED: CLONIDINE 0.1MG TABLET PO PRN (13:00)
[2017-03-23] MEDS ORDERED: FUROSEMIDE 40MG TABLET PO SCH (13:00)
[2017-03-23] MEDS ORDERED: ONDANSETRON HCL 4MG/2ML VIAL IV PRN ×2 (13:00→13:45)
[2017-03-23] MEDS ORDERED: ACETAMINOPHEN 325MG TABLET PO PRN ×2 (13:00→13:45)
[2017-03-23] MEDS ORDERED: IPRATROPIUM/ALBUTEROL 0.5-3(2.5)MG/3ML NEB HHN PRN (13:15)
[2017-03-23] MEDS ORDERED: IPRATROPIUM/ALBUTEROL 0.5-3(2.5)MG/3ML NEB INH PRN (13:45)
[2017-03-23] MEDS ORDERED: DOCUSATE SODIUM 100MG CAPSULE PO PRN (13:45)
[2017-03-23 14:00] VITALS: BP 124/72
[2017-03-23] MEDS ORDERED: LACTULOSE 20G/30ML UDC PO PRN (14:15)
[2017-03-23] MEDS ORDERED: DOCUSATE SODIUM 100MG CAPSULE PO SCH (14:30)
[2017-03-23 14:46] LABS: BASOPHILS % 0.7 % (0.0-2.0); EOSINOPHILS % 5.1 % (0.0-5.0); HEMATOCRIT. 40.2 % (42.0-52.0); HEMOGLOBIN. 12.9 g/dL (14.0-18.0); LYMPHOCYTES % 13.9 % (20.0-50.0); MEAN CORPUSCULAR HEMOGLOBIN 26.4 pg (28.0-32.0); MEAN CORPUSCULAR VOLUME 81.8 fL (80.0-94.0); MEAN PLATELET VOLUME 8.3 fl (7.4-10.4); MONOCYTES % 8.4 % (2.0-8.0); NEUTROPHILS % 71.9 % (40.0-76.0); PLATELET 236 x1000/uL (130-400); RED BLOOD CELL COUNT 4.91 mill/uL (4.7-6.1); RED CELL DISTRIBUTION WIDTH 17.4 % (11.6-14.6)
[2017-03-23 15:20] LABS: CARBON DIOXIDE 28 mEq/L (21-32); CHLORIDE 110 mEq/L (98-107); ETHANOL BLOOD < 10 mg/dL
[2017-03-23] MEDS ORDERED: ALPR-339 PO (16:14)
[2017-03-23 16:35] VITALS: BP 120/63
[2017-03-23 16:36] VITALS: BP 138/72
[2017-03-23] MEDS: DOCUSATE SODIUM 100MG CAPSULE PO SCH (17:09)
[2017-03-23] MEDS: APIXABAN 2.5 MG TABLET PO SCH (17:10)
[2017-03-23] MEDS: LISINOPRIL 10MG TABLET PO SCH (17:10)
[2017-03-23] MEDS: FUROSEMIDE 40MG TABLET PO SCH (17:10)
[2017-03-24] VITALS: BP 146/81
[2017-03-24 04:00] VITALS: BP 143/80
[2017-03-24 06:49] LABS: BASOPHILS % 0.7 % (0.0-2.0); EOSINOPHILS % 6.6 % (0.0-5.0); HEMATOCRIT. 38.9 % (42.0-52.0); HEMOGLOBIN. 12.7 g/dL (14.0-18.0); LYMPHOCYTES % 15.9 % (20.0-50.0); MEAN CORPUSCULAR HEMOGLOBIN 26.8 pg (28.0-32.0); MEAN CORPUSCULAR VOLUME 81.9 fL (80.0-94.0); MEAN PLATELET VOLUME 8.1 fl (7.4-10.4); MONOCYTES % 6.4 % (2.0-8.0); NEUTROPHILS % 70.4 % (40.0-76.0); PLATELET 214 x1000/uL (130-400); RED BLOOD CELL COUNT 4.75 mill/uL (4.7-6.1); RED CELL DISTRIBUTION WIDTH 16.9 % (11.6-14.6)
[2017-03-24 08:00] VITALS: BP 155/86
[2017-03-24] MEDS: OMEPRAZOLE 20MG CAPSULE EXTENDED RELEASE PO SCH (08:54)
[2017-03-24] MEDS: APIXABAN 2.5 MG TABLET PO SCH ×2 (08:54→17:23)
[2017-03-24] MEDS: DOCUSATE SODIUM 100MG CAPSULE PO SCH ×2 (08:54→17:23)
[2017-03-24] MEDS: LISINOPRIL 10MG TABLET PO SCH (08:54)
[2017-03-24] MEDS: ASPIRIN 81MG EC TABLET PO SCH (08:54)
[2017-03-24] MEDS: TRAMADOL 50MG TABLET PO PRN ×2 (08:55→17:29)
[2017-03-24] MEDS: MEMANTINE HCL 10MG TABLET PO SCH (08:55)
[2017-03-24] MEDS: FUROSEMIDE 40MG TABLET PO SCH (08:55)
[2017-03-24 12:00] VITALS: BP 114/72
[2017-03-24 16:00] VITALS: BP 119/64
[2017-03-24] MEDS: FUROSEMIDE 40MG/4ML VIAL IVP SCH (17:37)
[2017-03-24 20:00] VITALS: BP 128/72
[2017-03-24] MEDS: ATORVASTATIN CALCIUM 20MG TABLET PO SCH (21:14)
[2017-03-25] VITALS: BP 130/88
[2017-03-25 04:00] VITALS: BP 137/65
[2017-03-25] MEDS: OMEPRAZOLE 20MG CAPSULE EXTENDED RELEASE PO SCH (06:30)
[2017-03-25] MEDS: FUROSEMIDE 40MG/4ML VIAL IVP SCH ×2 (06:31→17:51)
[2017-03-25 06:39] LABS: BASOPHILS % 0.6 % (0.0-2.0); EOSINOPHILS % 6.6 % (0.0-5.0); HEMATOCRIT. 39.1 % (42.0-52.0); HEMOGLOBIN. 12.9 g/dL (14.0-18.0); LYMPHOCYTES % 14.5 % (20.0-50.0); MEAN CORPUSCULAR HEMOGLOBIN 26.7 pg (28.0-32.0); MEAN CORPUSCULAR VOLUME 81.1 fL (80.0-94.0); MEAN PLATELET VOLUME 8.4 fl (7.4-10.4); MONOCYTES % 5.7 % (2.0-8.0); NEUTROPHILS % 72.6 % (40.0-76.0); PLATELET 229 x1000/uL (130-400); RED BLOOD CELL COUNT 4.82 mill/uL (4.7-6.1); RED CELL DISTRIBUTION WIDTH 17.1 % (11.6-14.6)
[2017-03-25 08:00] VITALS: BP 141/78
[2017-03-25] MEDS: APIXABAN 2.5 MG TABLET PO SCH ×2 (08:54→17:47)
[2017-03-25] MEDS: DOCUSATE SODIUM 100MG CAPSULE PO SCH ×2 (08:54→17:47)
[2017-03-25] MEDS: ASPIRIN 81MG EC TABLET PO SCH (08:55)
[2017-03-25] MEDS: LISINOPRIL 10MG TABLET PO SCH (08:55)
[2017-03-25] MEDS: MEMANTINE HCL 10MG TABLET PO SCH (08:58)
[2017-03-25 12:00] VITALS: BP 128/68
[2017-03-25 16:00] VITALS: BP 120/69
[2017-03-25] MEDS: TRAMADOL 50MG TABLET PO PRN (17:48)
[2017-03-25 20:00] VITALS: BP 129/98
[2017-03-25] MEDS: ATORVASTATIN CALCIUM 20MG TABLET PO SCH (21:13)
[2017-03-26] VITALS: BP 135/60
[2017-03-26 04:00] VITALS: BP 129/66
[2017-03-26] MEDS: OMEPRAZOLE 20MG CAPSULE EXTENDED RELEASE PO SCH (06:17)
[2017-03-26] MEDS: FUROSEMIDE 40MG/4ML VIAL IVP SCH (06:17)
[2017-03-26 06:24] LABS: BASOPHILS % 0.4 % (0.0-2.0); EOSINOPHILS % 6.8 % (0.0-5.0); HEMATOCRIT. 41.5 % (42.0-52.0); HEMOGLOBIN. 13.6 g/dL (14.0-18.0); LYMPHOCYTES % 11.6 % (20.0-50.0); MEAN CORPUSCULAR HEMOGLOBIN 26.9 pg (28.0-32.0); MEAN CORPUSCULAR VOLUME 81.9 fL (80.0-94.0); MEAN PLATELET VOLUME 8.3 fl (7.4-10.4); MONOCYTES % 6.3 % (2.0-8.0); NEUTROPHILS % 74.9 % (40.0-76.0); PLATELET 258 x1000/uL (130-400); RED BLOOD CELL COUNT 5.06 mill/uL (4.7-6.1); RED CELL DISTRIBUTION WIDTH 17.3 % (11.6-14.6)
[2017-03-26 07:43] VITALS: BP 114/53
[2017-03-26] MEDS: APIXABAN 2.5 MG TABLET PO SCH ×2 (09:13→16:31)
[2017-03-26] MEDS: MEMANTINE HCL 10MG TABLET PO SCH (09:13)
[2017-03-26] MEDS: DOCUSATE SODIUM 100MG CAPSULE PO SCH ×2 (09:13→16:31)
[2017-03-26] MEDS: ASPIRIN 81MG EC TABLET PO SCH (09:13)
[2017-03-26] MEDS: LISINOPRIL 10MG TABLET PO SCH (09:13)
[2017-03-26 12:19] VITALS: BP 113/67
[2017-03-26] MEDS: CARVEDILOL 3.125 MG TABLET PO SCH ×2 (12:30→20:44)
[2017-03-26 16:25] VITALS: BP 101/54
[2017-03-26 20:00] VITALS: BP 127/90
[2017-03-26] MEDS: ATORVASTATIN CALCIUM 20MG TABLET PO SCH (20:43)
[2017-03-27] VITALS: BP 105/61
[2017-03-27 04:00] VITALS: BP 115/68
[2017-03-27] MEDS: OMEPRAZOLE 20MG CAPSULE EXTENDED RELEASE PO SCH (06:28)
[2017-03-27 07:37] VITALS: BP 109/51
[2017-03-27] MEDS: CARVEDILOL 3.125 MG TABLET PO SCH (08:53)
[2017-03-27] MEDS: LISINOPRIL 10MG TABLET PO SCH (08:55)
[2017-03-27] MEDS: DOCUSATE SODIUM 100MG CAPSULE PO SCH ×2 (08:56→17:29)
[2017-03-27] MEDS: MEMANTINE HCL 10MG TABLET PO SCH ×2 (08:56→17:29)
[2017-03-27] MEDS: APIXABAN 2.5 MG TABLET PO SCH ×2 (08:56→17:29)
[2017-03-27] MEDS: ASPIRIN 81MG EC TABLET PO SCH (08:56)
[2017-03-27] MEDS ORDERED: FUROSEMIDE 40MG/4ML VIAL IVP SCH (09:00)
[2017-03-27 10:24] LABS: BASOPHILS % 0.5 % (0.0-2.0); EOSINOPHILS % 7.7 % (0.0-5.0); HEMATOCRIT. 44.4 % (42.0-52.0); HEMOGLOBIN. 14.7 g/dL (14.0-18.0); LYMPHOCYTES % 11.6 % (20.0-50.0); MEAN CORPUSCULAR HEMOGLOBIN 26.6 pg (28.0-32.0); MEAN CORPUSCULAR VOLUME 80.6 fL (80.0-94.0); MEAN PLATELET VOLUME 8.4 fl (7.4-10.4); MONOCYTES % 5.8 % (2.0-8.0); NEUTROPHILS % 74.4 % (40.0-76.0); PLATELET 286 x1000/uL (130-400); RED BLOOD CELL COUNT 5.51 mill/uL (4.7-6.1); RED CELL DISTRIBUTION WIDTH 17.3 % (11.6-14.6)
[2017-03-27 12:02] VITALS: BP 114/72
[2017-03-27 12:12] LABS: T4 FREE 1.26 ng/dL (0.76-1.46)
[2017-03-27 12:58] LABS: AMMONIA < 25 uMol/L (<32)
[2017-03-27 15:45] VITALS: BP 105/51
[2017-03-27 16:35] VITALS: BP 105/51
[2017-03-28 00:39] LABS: FOLIC ACID (FOLATE) SERUM 9.6 ng/mL (>5.38)
== END 2017-03-27 17:55 | DRG 291 ==
LOC: 6WST 12:39
PROVIDERS: ADMIT Specialist; ATTEND Specialist
DX: I13.0 Hypertensive heart and chronic kidney disease with heart failure and stage 1 through stage 4 chronic kidney disease, or unspecified chronic kidney disease (principal); I50.23 Acute on chronic systolic (congestive) heart failure; G92 Toxic encephalopathy; I42.0 Dilated cardiomyopathy; I48.0 Paroxysmal atrial fibrillation; I69.354 Hemiplegia and hemiparesis following cerebral infarction affecting left non-dominant side; R13.10 Dysphagia, unspecified; Z99.81 Dependence on supplemental oxygen; I49.5 Sick sinus syndrome; J44.9 Chronic obstructive pulmonary disease, unspecified; Z66 Do not resuscitate; F03.90 Unspecified dementia, unspecified severity, without behavioral disturbance, psychotic disturbance, mood disturbance, and anxiety; E78.00 Pure hypercholesterolemia, unspecified; D64.9 Anemia, unspecified; R26.9 Unspecified abnormalities of gait and mobility; R47.1 Dysarthria and anarthria; N18.9 Chronic kidney disease, unspecified; I25.10 Atherosclerotic heart disease of native coronary artery without angina pectoris; I48.2 Chronic atrial fibrillation; R74.8 Abnormal levels of other serum enzymes; R29.6 Repeated falls; R32 Unspecified urinary incontinence; Z79.01 Long term (current) use of anticoagulants; Z90.49 Acquired absence of other specified parts of digestive tract; Z95.810 Presence of automatic (implantable) cardiac defibrillator; Z88.1 Allergy status to other antibiotic agents; Z88.0 Allergy status to penicillin; Z88.8 Allergy status to other drugs, medicaments and biological substances; Z79.82 Long term (current) use of aspirin; Z79.899 Other long term (current) drug therapy; Z85.038 Personal history of other malignant neoplasm of large intestine; Z92.21 Personal history of antineoplastic chemotherapy; Z86.79 Personal history of other diseases of the circulatory system
CPT/HCPCS: 36415; 70450; 80048; 80053; 82140; 82607; 82746; 83036; 83735; 84439; 84443; 84481; 85025; 92610; 93005; 93970; 97116; 97162; 97166; 97530; 97535; A6261; C1893; G0482; J1940; J7050; J7620

== ENCOUNTER 2017-03-27 18:00 | Inpatient (IN) | payer MEDICARE, MEDICAID ==
[~2017-03-27] VITALS: Ht 180.3 cm; Wt 79.9 kg
[2017-03-27 18:00] VITALS: BP 126/64
[~2017-03-27 18:00] MED LIST changes: +ALPR-339 PO
[2017-03-27] MEDS ORDERED: CLONIDINE 0.1MG TABLET PO PRN (18:45)
[2017-03-27] MEDS ORDERED: LACTULOSE 20G/30ML UDC PO PRN (18:45)
[2017-03-27] MEDS ORDERED: ONDANSETRON HCL 4MG/2ML VIAL IV PRN (18:45)
[2017-03-27] MEDS ORDERED: TRAMADOL 50MG TABLET PO PRN (18:45)
[2017-03-27 20:00] VITALS: BP 106/59
[2017-03-27 20:36] VITALS: BP 106/59
[2017-03-27] MEDS ORDERED: MEMANTINE HCL 10MG TABLET PO SCH (21:00)
[2017-03-28 06:15] LABS: BASOPHILS % 0.6 % (0.0-2.0); EOSINOPHILS % 10.4 % (0.0-5.0); HEMATOCRIT. 43.4 % (42.0-52.0); HEMOGLOBIN. 14.2 g/dL (14.0-18.0); LYMPHOCYTES % 13.2 % (20.0-50.0); MEAN CORPUSCULAR HEMOGLOBIN 26.2 pg (28.0-32.0); MEAN CORPUSCULAR VOLUME 80.4 fL (80.0-94.0); MEAN PLATELET VOLUME 8.1 fl (7.4-10.4); MONOCYTES % 6.9 % (2.0-8.0); NEUTROPHILS % 68.9 % (40.0-76.0); PLATELET 281 x1000/uL (130-400); RED CELL DISTRIBUTION WIDTH 17.4 % (11.6-14.6)
[2017-03-28] MEDS: OMEPRAZOLE 20MG CAPSULE EXTENDED RELEASE PO SCH (06:45)
[2017-03-28 07:19] LABS: CHLORIDE 106 mEq/L (98-107)
[2017-03-28 07:28] LABS: CARBON DIOXIDE 28 mEq/L (21-32); PREALBUMIN 19.4 mg/dL (20.0-40.0)
[2017-03-28 08:00] VITALS: BP 108/64
[2017-03-28] MEDS: DOCUSATE SODIUM 100MG CAPSULE PO SCH ×2 (09:39→17:36)
[2017-03-28] MEDS: MEMANTINE HCL 5MG TABLET PO SCH ×2 (09:39→17:36)
[2017-03-28] MEDS: LISINOPRIL 10MG TABLET PO SCH (09:40)
[2017-03-28] MEDS: APIXABAN 2.5 MG TABLET PO SCH (17:36)
[2017-03-28 20:00] VITALS: BP 110/61
[2017-03-28] MEDS: CARVEDILOL 3.125 MG TABLET PO SCH (20:29)
[2017-03-28] MEDS: ATORVASTATIN CALCIUM 40MG TABLET PO SCH (20:29)
[2017-03-28 22:10] LABS: CLARITY URINE CLEAR (CLEAR); COLOR URINE YELLOW (YELLOW); GLUCOSE URINE NEGATIVE (NEGATIVE); KETONES URINE NEGATIVE (NEGATIVE); LEUKOCYTE ESTERASE URINE NEGATIVE (NEGATIVE); NITRITE URINE NEGATIVE (NEGATIVE); OCCULT BLOOD URINE NEGATIVE (NEGATIVE); PH URINE 5.5 (4.5-8.0); PROTEIN URINE NEGATIVE (NEGATIVE); SPECIFIC GRAVITY URINE 1.019 (1.005-1.030)
[2017-03-29] MEDS: OMEPRAZOLE 20MG CAPSULE EXTENDED RELEASE PO SCH (06:08)
[2017-03-29 06:21] LABS: BASOPHILS % 0.8 % (0.0-2.0); EOSINOPHILS % 12.2 % (0.0-5.0); LYMPHOCYTES % 14.6 % (20.0-50.0); MEAN CORPUSCULAR HEMOGLOBIN 26.2 pg (28.0-32.0); MEAN CORPUSCULAR VOLUME 80.5 fL (80.0-94.0); MEAN PLATELET VOLUME 8.2 fl (7.4-10.4); MONOCYTES % 6.9 % (2.0-8.0); NEUTROPHILS % 65.5 % (40.0-76.0); PLATELET 264 x1000/uL (130-400); RED BLOOD CELL COUNT 4.96 mill/uL (4.7-6.1); RED CELL DISTRIBUTION WIDTH 17.2 % (11.6-14.6)
[2017-03-29] MEDS ORDERED: BISACODYL 10MG SUPP PR PRN (07:45)
[2017-03-29 08:00] VITALS: BP 110/73
[2017-03-29] MEDS ORDERED: NA PHOS,M-B/NA PHOS,DI-BA ENEMA 118ML PR NR (08:00)
[2017-03-29] MEDS: CARVEDILOL 3.125 MG TABLET PO SCH ×2 (08:57→20:47)
[2017-03-29] MEDS: LISINOPRIL 10MG TABLET PO SCH (08:58)
[2017-03-29] MEDS: DOCUSATE SODIUM 100MG CAPSULE PO SCH ×2 (09:10→17:10)
[2017-03-29] MEDS: APIXABAN 2.5 MG TABLET PO SCH ×2 (09:10→17:10)
[2017-03-29] MEDS: MEMANTINE HCL 5MG TABLET PO SCH ×2 (09:10→17:10)
[2017-03-29 20:00] VITALS: BP 105/61
[2017-03-29] MEDS: ATORVASTATIN CALCIUM 40MG TABLET PO SCH (20:47)
[2017-03-30] MEDS: FAMOTIDINE 20MG TABLET PO SCH (06:07)
[2017-03-30 06:47] LABS: BASOPHILS % 0.7 % (0.0-2.0); HEMATOCRIT. 43.1 % (42.0-52.0); HEMOGLOBIN. 13.6 g/dL (14.0-18.0); LYMPHOCYTES % 15.3 % (20.0-50.0); MEAN CORPUSCULAR HEMOGLOBIN 25.5 pg (28.0-32.0); MEAN CORPUSCULAR VOLUME 80.8 fL (80.0-94.0); MEAN PLATELET VOLUME 8.3 fl (7.4-10.4); MONOCYTES % 6.5 % (2.0-8.0); NEUTROPHILS % 61.5 % (40.0-76.0); PLATELET 276 x1000/uL (130-400); RED BLOOD CELL COUNT 5.33 mill/uL (4.7-6.1); RED CELL DISTRIBUTION WIDTH 17.8 % (11.6-14.6)
[2017-03-30 07:22] LABS: PHOSPHORUS 2.7 mg/dL (2.5-4.9)
[2017-03-30 07:52] LABS: PROSTRATE SPECIFIC AG TOTAL 0.44 ng/mL (0.0-4.0)
[2017-03-30 08:00] VITALS: BP 105/67
[2017-03-30] MEDS: LISINOPRIL 10MG TABLET PO SCH (09:00)
[2017-03-30] MEDS ORDERED: NA PHOS,M-B/NA PHOS,DI-BA ENEMA 118ML PR PRN (09:00)
[2017-03-30] MEDS: CARVEDILOL 3.125 MG TABLET PO SCH ×2 (09:00→21:00)
[2017-03-30] MEDS: APIXABAN 2.5 MG TABLET PO SCH ×2 (09:30→16:59)
[2017-03-30] MEDS: DOCUSATE SODIUM 100MG CAPSULE PO SCH ×2 (09:30→16:59)
[2017-03-30] MEDS: MEMANTINE HCL 5MG TABLET PO SCH ×2 (09:31→16:59)
[2017-03-30] MEDS: ACETAMINOPHEN 325MG TABLET PO PRN (10:31)
[2017-03-30] MEDS: LACTULOSE 20G/30ML UDC PO SCH ×2 (16:59→21:00)
[2017-03-30 20:00] VITALS: BP 128/65
[2017-03-30] MEDS: MUPIROCIN 2% OINT 22GM NS SCH (21:02)
[2017-03-30] MEDS: ATORVASTATIN CALCIUM 40MG TABLET PO SCH (21:03)
[2017-03-31] MEDS: FAMOTIDINE 20MG TABLET PO SCH (06:34)
[2017-03-31 08:00] VITALS: BP 134/79
[2017-03-31] MEDS: CARVEDILOL 3.125 MG TABLET PO SCH ×2 (09:40→21:00)
[2017-03-31] MEDS: MEMANTINE HCL 5MG TABLET PO SCH ×2 (09:40→17:56)
[2017-03-31] MEDS: BISACODYL 10MG SUPP PR SCH (09:40)
[2017-03-31] MEDS: DOCUSATE SODIUM 100MG CAPSULE PO SCH ×2 (09:40→17:56)
[2017-03-31] MEDS: APIXABAN 2.5 MG TABLET PO SCH ×2 (09:40→17:56)
[2017-03-31] MEDS: LISINOPRIL 10MG TABLET PO SCH (09:40)
[2017-03-31] MEDS: MUPIROCIN 2% OINT 22GM NS SCH ×2 (09:43→21:36)
[2017-03-31 20:00] VITALS: BP 98/61
[2017-03-31] MEDS: ATORVASTATIN CALCIUM 40MG TABLET PO SCH (21:35)
[2017-04-01] MEDS: FAMOTIDINE 20MG TABLET PO SCH ×2 (06:28→21:35)
[2017-04-01 08:00] VITALS: BP 131/70
[2017-04-01] MEDS: APIXABAN 2.5 MG TABLET PO SCH ×2 (09:34→17:25)
[2017-04-01] MEDS: MUPIROCIN 2% OINT 22GM NS SCH ×2 (09:34→21:36)
[2017-04-01] MEDS: DOCUSATE SODIUM 100MG CAPSULE PO SCH ×2 (09:34→17:00)
[2017-04-01] MEDS: LISINOPRIL 10MG TABLET PO SCH (09:34)
[2017-04-01] MEDS: MEMANTINE HCL 5MG TABLET PO SCH ×2 (09:34→17:25)
[2017-04-01] MEDS: BISACODYL 10MG SUPP PR SCH (09:34)
[2017-04-01] MEDS: CARVEDILOL 3.125 MG TABLET PO SCH ×2 (09:37→21:00)
[2017-04-01 20:00] VITALS: BP 115/68
[2017-04-01] MEDS: ATORVASTATIN CALCIUM 40MG TABLET PO SCH (21:35)
[2017-04-02 07:08] LABS: HEMATOCRIT. 41.5 % (42.0-52.0); HEMOGLOBIN. 13.5 g/dL (14.0-18.0); MEAN CORPUSCULAR HEMOGLOBIN 26.3 pg (28.0-32.0); MEAN PLATELET VOLUME 8.2 fl (7.4-10.4); PLATELET 248 x1000/uL (130-400); RED BLOOD CELL COUNT 5.12 mill/uL (4.7-6.1); RED CELL DISTRIBUTION WIDTH 17.9 % (11.6-14.6)
[2017-04-02 08:00] VITALS: BP 114/49
[2017-04-02] MEDS: APIXABAN 2.5 MG TABLET PO SCH ×2 (08:56→17:09)
[2017-04-02] MEDS: DOCUSATE SODIUM 100MG CAPSULE PO SCH ×2 (08:56→17:09)
[2017-04-02] MEDS: CARVEDILOL 3.125 MG TABLET PO SCH ×2 (08:57→21:00)
[2017-04-02] MEDS: LISINOPRIL 10MG TABLET PO SCH (08:57)
[2017-04-02] MEDS: MEMANTINE HCL 5MG TABLET PO SCH ×2 (08:57→17:09)
[2017-04-02] MEDS: BISACODYL 10MG SUPP PR SCH (08:59)
[2017-04-02 10:54] LABS: PLATELET ESTIMATE NORMAL
[2017-04-02] MEDS: MUPIROCIN 2% OINT 22GM NS SCH ×2 (11:12→21:00)
[2017-04-02] MEDS: ACETAMINOPHEN 325MG TABLET PO PRN (11:43)
[2017-04-02 17:12] LABS: 25-HYDROXY VITAMIN D3 9.9 ng/mL (.)
[2017-04-02 20:00] VITALS: BP 108/64
[2017-04-02] MEDS: ATORVASTATIN CALCIUM 40MG TABLET PO SCH (22:38)
[2017-04-03] MEDS: IPRATROPIUM/ALBUTEROL 0.5-3(2.5)MG/3ML NEB HHN PRN ×2 (00:45→00:49)
[2017-04-03] MEDS: FAMOTIDINE 20MG TABLET PO SCH (06:33)
[2017-04-03 08:00] VITALS: BP 133/78
[2017-04-03] MEDS: APIXABAN 2.5 MG TABLET PO SCH ×2 (08:18→16:14)
[2017-04-03] MEDS: BISACODYL 10MG SUPP PR SCH (08:19)
[2017-04-03] MEDS: MUPIROCIN 2% OINT 22GM NS SCH (08:19)
[2017-04-03] MEDS: DOCUSATE SODIUM 100MG CAPSULE PO SCH ×2 (08:19→16:14)
[2017-04-03] MEDS: LISINOPRIL 10MG TABLET PO SCH (08:19)
[2017-04-03] MEDS: MEMANTINE HCL 5MG TABLET PO SCH ×2 (08:19→16:14)
[2017-04-03] MEDS: CARVEDILOL 3.125 MG TABLET PO SCH (08:20)
[2017-04-03] MEDS ORDERED: FUROSEMIDE 40MG/4ML VIAL IVP SCH (11:00)
[2017-04-03] MEDS ORDERED: FUROSEMIDE 40MG TABLET PO NR (12:15)
[2017-04-03 16:50] VITALS: BP 118/74
[2017-04-03] MEDS ORDERED: ERGOCALCIFEROL 50000UNITS CAPSULE PO SCH (18:30)
== END 2017-04-03 18:40 | disposition short-term general hospital (02) | DRG 91 ==
PROVIDERS: ADMIT Physical Medicine & Rehabilitation Spinal Cord Injury Medicine; ATTEND Family Medicine Adult Medicine
DX: G92 Toxic encephalopathy (principal); I50.23 Acute on chronic systolic (congestive) heart failure; I42.0 Dilated cardiomyopathy; I48.0 Paroxysmal atrial fibrillation; R13.10 Dysphagia, unspecified; I48.2 Chronic atrial fibrillation; I13.0 Hypertensive heart and chronic kidney disease with heart failure and stage 1 through stage 4 chronic kidney disease, or unspecified chronic kidney disease; I69.354 Hemiplegia and hemiparesis following cerebral infarction affecting left non-dominant side; I49.5 Sick sinus syndrome; R15.9 Full incontinence of feces; J44.9 Chronic obstructive pulmonary disease, unspecified; D64.9 Anemia, unspecified; Z66 Do not resuscitate; R32 Unspecified urinary incontinence; N18.9 Chronic kidney disease, unspecified; I25.10 Atherosclerotic heart disease of native coronary artery without angina pectoris; F03.90 Unspecified dementia, unspecified severity, without behavioral disturbance, psychotic disturbance, mood disturbance, and anxiety; E78.00 Pure hypercholesterolemia, unspecified; R47.1 Dysarthria and anarthria; R53.81 Other malaise; R26.9 Unspecified abnormalities of gait and mobility; R29.6 Repeated falls; Z95.810 Presence of automatic (implantable) cardiac defibrillator; Z92.21 Personal history of antineoplastic chemotherapy; Z86.79 Personal history of other diseases of the circulatory system; Z85.038 Personal history of other malignant neoplasm of large intestine; Z79.01 Long term (current) use of anticoagulants; Z88.6 Allergy status to analgesic agent; Z88.0 Allergy status to penicillin; Z88.8 Allergy status to other drugs, medicaments and biological substances; Z79.899 Other long term (current) drug therapy; Z90.49 Acquired absence of other specified parts of digestive tract
CPT/HCPCS: 36415; 71010; 80048; 80053; 80061; 81001; 82270; 82306; 82607; 82728; 83036; 83540; 83550; 83735; 84100; 84134; 84153; 84443; 84630; 85025; 87086; 92523; 92610; 93970; 94664; 97110; 97116; 97163; 97166; 97530; 97532; 97535; A6261; J7620

== ENCOUNTER 2017-04-03 18:40 | Inpatient (IN) | payer MEDICARE, MEDICAID ==
[~2017-04-03] VITALS: Ht 170.2 cm; Wt 75.3 kg
[2017-04-03 20:00] VITALS: BP 114/61
[2017-04-03] MEDS ORDERED: ACETAMINOPHEN 325MG TABLET PO PRN (20:00)
[2017-04-03] MEDS ORDERED: MAGNESIUM/ALUMINUM HYDROXIDE/SIMETHICONE 30ML UDC PO PRN (20:00)
[2017-04-03] MEDS ORDERED: DOCUSATE SODIUM 100MG CAPSULE PO PRN (20:00)
[2017-04-03] MEDS ORDERED: CLONIDINE 0.1MG TABLET PO PRN (20:00)
[2017-04-03] MEDS ORDERED: ONDANSETRON HCL 4MG/2ML VIAL IV PRN (20:00)
[2017-04-03] MEDS ORDERED: IPRATROPIUM/ALBUTEROL 0.5-3(2.5)MG/3ML NEB INH PRN (20:00)
[2017-04-03] MEDS: IPRATROPIUM/ALBUTEROL 0.5-3(2.5)MG/3ML NEB INH SCH (21:57)
[2017-04-04] VITALS: BP 112/49
[2017-04-04] MEDS: IPRATROPIUM/ALBUTEROL 0.5-3(2.5)MG/3ML NEB INH SCH ×4 (02:08→21:12)
[2017-04-04 04:00] VITALS: BP 133/73
[2017-04-04] MEDS: OMEPRAZOLE 20MG CAPSULE EXTENDED RELEASE PO SCH (06:19)
[2017-04-04 08:00] VITALS: BP 106/60
[2017-04-04 08:00] LABS: BASOPHILS % 1.1 % (0.0-2.0); EOSINOPHILS % 21.1 % (0.0-5.0); HEMATOCRIT. 44.5 % (42.0-52.0); HEMOGLOBIN. 14.5 g/dL (14.0-18.0); LYMPHOCYTES % 20.5 % (20.0-50.0); MEAN CORPUSCULAR HEMOGLOBIN 26.5 pg (28.0-32.0); MEAN CORPUSCULAR VOLUME 81.5 fL (80.0-94.0); MEAN PLATELET VOLUME 8.4 fl (7.4-10.4); MONOCYTES % 7.4 % (2.0-8.0); NEUTROPHILS % 49.9 % (40.0-76.0); PLATELET 253 x1000/uL (130-400); RED BLOOD CELL COUNT 5.47 mill/uL (4.7-6.1); RED CELL DISTRIBUTION WIDTH 17.8 % (11.6-14.6)
[2017-04-04] MEDS: ASPIRIN 81MG TABLET PO SCH (08:10)
[2017-04-04] MEDS: APIXABAN 2.5 MG TABLET PO SCH ×2 (08:10→17:02)
[2017-04-04] MEDS: LISINOPRIL 10MG TABLET PO SCH (08:10)
[2017-04-04] MEDS: MEMANTINE HCL 10MG TABLET PO SCH (08:11)
[2017-04-04] MEDS ORDERED: FUROSEMIDE 40MG TABLET PO SCH (09:00)
[2017-04-04 11:52] VITALS: BP 111/63
[2017-04-04] MEDS: CARVEDILOL 3.125 MG TABLET PO SCH ×2 (13:05→21:00)
[2017-04-04 16:00] VITALS: BP 96/46
[2017-04-04] MEDS: FUROSEMIDE 40MG TABLET PO SCH (17:02)
[2017-04-04 20:00] VITALS: BP 110/42
[2017-04-04] MEDS: ALPRAZOLAM 0.25 MG TABLET PO SCH (21:56)
[2017-04-04] MEDS: ATORVASTATIN CALCIUM 20MG TABLET PO SCH (21:56)
[2017-04-05] VITALS (7 sets, daily range): BP systolic 100–120; BP diastolic 50–68
[2017-04-05] MEDS: IPRATROPIUM/ALBUTEROL 0.5-3(2.5)MG/3ML NEB INH SCH ×4 (01:26→21:05)
[2017-04-05] MEDS: OMEPRAZOLE 20MG CAPSULE EXTENDED RELEASE PO SCH (06:19)
[2017-04-05] MEDS: FUROSEMIDE 40MG TABLET PO SCH ×2 (06:22→18:29)
[2017-04-05 07:43] LABS: BASOPHILS % 0.8 % (0.0-2.0); EOSINOPHILS % 13.8 % (0.0-5.0); HEMATOCRIT. 40.7 % (42.0-52.0); HEMOGLOBIN. 13.2 g/dL (14.0-18.0); LYMPHOCYTES % 19.3 % (20.0-50.0); MEAN CORPUSCULAR HEMOGLOBIN 26.2 pg (28.0-32.0); MEAN PLATELET VOLUME 8.2 fl (7.4-10.4); MONOCYTES % 6.3 % (2.0-8.0); NEUTROPHILS % 59.8 % (40.0-76.0); PLATELET 265 x1000/uL (130-400); RED BLOOD CELL COUNT 5.03 mill/uL (4.7-6.1); RED CELL DISTRIBUTION WIDTH 17.4 % (11.6-14.6)
[2017-04-05] MEDS: ASPIRIN 81MG TABLET PO SCH (08:59)
[2017-04-05] MEDS: CARVEDILOL 3.125 MG TABLET PO SCH ×2 (09:00→21:00)
[2017-04-05] MEDS: LISINOPRIL 10MG TABLET PO SCH (09:00)
[2017-04-05] MEDS ORDERED: ERGOCALCIFEROL 50000UNITS CAPSULE PO SCH (09:00)
[2017-04-05] MEDS: APIXABAN 2.5 MG TABLET PO SCH ×2 (09:01→18:29)
[2017-04-05] MEDS: MEMANTINE HCL 10MG TABLET PO SCH (09:01)
[2017-04-05] MEDS: ALPRAZOLAM 0.25 MG TABLET PO SCH (21:14)
[2017-04-05] MEDS: ATORVASTATIN CALCIUM 20MG TABLET PO SCH (21:14)
[2017-04-06] VITALS: BP 138/60
[2017-04-06] MEDS: IPRATROPIUM/ALBUTEROL 0.5-3(2.5)MG/3ML NEB INH SCH ×2 (01:15→08:43)
[2017-04-06 04:00] VITALS: BP 108/60
[2017-04-06] MEDS: OMEPRAZOLE 20MG CAPSULE EXTENDED RELEASE PO SCH ×2 (06:01→08:32)
[2017-04-06] MEDS: FUROSEMIDE 40MG TABLET PO SCH (06:01)
[2017-04-06 07:22] LABS: BASOPHILS % 1.1 % (0.0-2.0); EOSINOPHILS % 18.3 % (0.0-5.0); HEMATOCRIT. 42.5 % (42.0-52.0); HEMOGLOBIN. 13.7 g/dL (14.0-18.0); LYMPHOCYTES % 20.6 % (20.0-50.0); MEAN CORPUSCULAR HEMOGLOBIN 26.4 pg (28.0-32.0); MEAN CORPUSCULAR VOLUME 81.7 fL (80.0-94.0); MEAN PLATELET VOLUME 8.7 fl (7.4-10.4); MONOCYTES % 9.2 % (2.0-8.0); NEUTROPHILS % 50.8 % (40.0-76.0); PLATELET 262 x1000/uL (130-400); RED CELL DISTRIBUTION WIDTH 18.3 % (11.6-14.6)
[2017-04-06 08:00] VITALS: BP 136/65
[2017-04-06] MEDS: LISINOPRIL 10MG TABLET PO SCH (08:31)
[2017-04-06] MEDS: ASPIRIN 81MG TABLET PO SCH (08:32)
[2017-04-06] MEDS: MEMANTINE HCL 10MG TABLET PO SCH (08:32)
[2017-04-06] MEDS: CARVEDILOL 3.125 MG TABLET PO SCH (08:33)
[2017-04-06] MEDS: APIXABAN 2.5 MG TABLET PO SCH ×2 (08:33→17:05)
[2017-04-06 12:00] VITALS: BP 101/59
[2017-04-06 14:39] VITALS: BP 101/39
[2017-04-06 16:00] VITALS: BP 108/62
== END 2017-04-06 18:25 | DRG 91 ==
LOC: 8WST 18:40
PROVIDERS: ADMIT Family Medicine Adult Medicine; ATTEND Family Medicine Adult Medicine
DX: G92 Toxic encephalopathy (principal); I50.23 Acute on chronic systolic (congestive) heart failure; J96.20 Acute and chronic respiratory failure, unspecified whether with hypoxia or hypercapnia; E87.2 Acidosis; N18.4 Chronic kidney disease, stage 4 (severe); N17.9 Acute kidney failure, unspecified; R13.10 Dysphagia, unspecified; I42.0 Dilated cardiomyopathy; I48.0 Paroxysmal atrial fibrillation; I13.0 Hypertensive heart and chronic kidney disease with heart failure and stage 1 through stage 4 chronic kidney disease, or unspecified chronic kidney disease; I49.5 Sick sinus syndrome; F03.90 Unspecified dementia, unspecified severity, without behavioral disturbance, psychotic disturbance, mood disturbance, and anxiety; R47.1 Dysarthria and anarthria; I25.10 Atherosclerotic heart disease of native coronary artery without angina pectoris; D64.9 Anemia, unspecified; E55.9 Vitamin D deficiency, unspecified; E78.00 Pure hypercholesterolemia, unspecified; I65.29 Occlusion and stenosis of unspecified carotid artery; J44.9 Chronic obstructive pulmonary disease, unspecified; I48.2 Chronic atrial fibrillation; R32 Unspecified urinary incontinence; Z66 Do not resuscitate; Z79.01 Long term (current) use of anticoagulants; Z85.038 Personal history of other malignant neoplasm of large intestine; Z86.73 Personal history of transient ischemic attack (TIA), and cerebral infarction without residual deficits; Z86.79 Personal history of other diseases of the circulatory system; Z95.810 Presence of automatic (implantable) cardiac defibrillator; Z99.81 Dependence on supplemental oxygen; Z90.49 Acquired absence of other specified parts of digestive tract; Z88.0 Allergy status to penicillin; Z88.8 Allergy status to other drugs, medicaments and biological substances; Z79.899 Other long term (current) drug therapy; Z22.322 Carrier or suspected carrier of Methicillin resistant Staphylococcus aureus
CPT/HCPCS: 36415; 80048; 83735; 85025; 92523; 92610; 94640; 94664; 97110; 97116; 97162; 97166; 97530; J7620

== ENCOUNTER 2017-06-21 10:03 | Inpatient (IN) | payer MEDICARE, MEDICAID ==
[~2017-06-21] VITALS: Ht 180.3 cm; Wt 79.4 kg
[2017-06-21 11:07] LABS: BASOPHILS % 0.8 % (0.0-2.0); EOSINOPHILS % 10.4 % (0.0-5.0); HEMATOCRIT. 40.9 % (42.0-52.0); HEMOGLOBIN. 13.1 g/dL (14.0-18.0); LYMPHOCYTES % 21.3 % (20.0-50.0); MEAN CORPUSCULAR HEMOGLOBIN 26.5 pg (28.0-32.0); MEAN CORPUSCULAR VOLUME 82.7 fL (80.0-94.0); MEAN PLATELET VOLUME 7.8 fl (7.4-10.4); MONOCYTES % 12.7 % (2.0-8.0); NEUTROPHILS % 54.8 % (40.0-76.0); PLATELET 247 x1000/uL (130-400); RED BLOOD CELL COUNT 4.94 mill/uL (4.7-6.1); RED CELL DISTRIBUTION WIDTH 18.4 % (11.6-14.6)
[2017-06-21 11:17] LABS: INR 1.1; PROTHROMBIN TIME 11.8 sec (9.4-11.6)
[2017-06-21 11:24] LABS: CARBON DIOXIDE 23 mEq/L (21-32); CHLORIDE 109 mEq/L (98-107); TROPONIN I 0.04 ng/mL (0.00-0.04)
[2017-06-21] MEDS ORDERED: ENOXAPARIN 80MG/0.8ML SYR SUBCUT ONE (11:45)
[2017-06-21] MEDS ORDERED: FUROSEMIDE 20MG TABLET PO ONE (11:45)
[2017-06-21] MEDS: ASPIRIN 81MG TABLET PO ONE ×2 (11:55→12:07)
[2017-06-21] MEDS ORDERED: ONDANSETRON HCL 4MG/2ML VIAL IV PRN (17:00)
[2017-06-21] MEDS ORDERED: ACETAMINOPHEN 325MG TABLET PO PRN (17:00)
[2017-06-21] MEDS ORDERED: IPRATROPIUM/ALBUTEROL 0.5-3(2.5)MG/3ML NEB INH PRN (17:00)
[2017-06-21] MEDS ORDERED: GUAIFENESIN 200MG/10ML SUGAR FREE UDC PO PRN (17:00)
[2017-06-21] MEDS ORDERED: DOCUSATE SODIUM 100MG CAPSULE PO PRN (17:00)
[2017-06-21] MEDS ORDERED: MAGNESIUM/ALUMINUM HYDROXIDE/SIMETHICONE 30ML UDC PO PRN (17:00)
[2017-06-21] MEDS: LISINOPRIL 5MG TABLET PO SCH (22:30)
[2017-06-21] MEDS: CARVEDILOL 3.125 MG TABLET PO SCH (22:30)
[2017-06-21] MEDS ORDERED: ZOLPIDEM TARTRATE 5MG TABLET PO PRN (22:30)
[2017-06-21 22:35] VITALS: BP 111/75
[2017-06-22] VITALS: BP 111/75
[2017-06-22] MEDS: APIXABAN 2.5 MG TABLET PO SCH ×3 (00:10→17:52)
[2017-06-22] MEDS: FUROSEMIDE 20MG TABLET PO SCH ×3 (00:10→21:17)
[2017-06-22] MEDS ORDERED: FURO40TA5 PO (01:00)
[2017-06-22] MEDS ORDERED: COD PO (01:00)
[2017-06-22] MEDS ORDERED: ACETAMINOPHEN PO (01:00)
[2017-06-22] MEDS ORDERED: ATOR20TA65 PO (01:00)
[2017-06-22 04:00] VITALS: BP 107/71
[2017-06-22 06:47] LABS: BASOPHILS % 0.9 % (0.0-2.0); EOSINOPHILS % 12.4 % (0.0-5.0); HEMATOCRIT. 38.6 % (42.0-52.0); HEMOGLOBIN. 12.8 g/dL (14.0-18.0); LYMPHOCYTES % 20.9 % (20.0-50.0); MEAN CORPUSCULAR HEMOGLOBIN 27.1 pg (28.0-32.0); MEAN CORPUSCULAR VOLUME 81.8 fL (80.0-94.0); MEAN PLATELET VOLUME 7.9 fl (7.4-10.4); MONOCYTES % 10.1 % (2.0-8.0); NEUTROPHILS % 55.7 % (40.0-76.0); PLATELET 240 x1000/uL (130-400); RED BLOOD CELL COUNT 4.71 mill/uL (4.7-6.1); RED CELL DISTRIBUTION WIDTH 18.1 % (11.6-14.6)
[2017-06-22 08:00] VITALS: BP 132/70
[2017-06-22] MEDS: OMEPRAZOLE 20MG CAPSULE EXTENDED RELEASE PO SCH (08:37)
[2017-06-22] MEDS: LISINOPRIL 5MG TABLET PO SCH (08:37)
[2017-06-22] MEDS: CARVEDILOL 3.125 MG TABLET PO SCH ×2 (08:37→21:00)
[2017-06-22] MEDS: HYDROCODONE/ACETAMINOPHEN 5/325MG TABLET PO PRN (11:38)
[2017-06-22 12:00] VITALS: BP 111/57
[2017-06-22 16:00] VITALS: BP 91/53
[2017-06-22 20:00] VITALS: BP 109/64
[2017-06-22] MEDS: CILOSTAZOL 50 MG TABLET PO SCH (21:17)
[2017-06-23] VITALS: BP 107/56
[2017-06-23 04:00] VITALS: BP 101/58
[2017-06-23 07:45] LABS: BASOPHILS % 0.7 % (0.0-2.0); EOSINOPHILS % 10.2 % (0.0-5.0); HEMATOCRIT. 42.9 % (42.0-52.0); HEMOGLOBIN. 13.9 g/dL (14.0-18.0); LYMPHOCYTES % 25.2 % (20.0-50.0); MEAN CORPUSCULAR HEMOGLOBIN 26.8 pg (28.0-32.0); MEAN CORPUSCULAR VOLUME 83.1 fL (80.0-94.0); MONOCYTES % 11.9 % (2.0-8.0); PLATELET 231 x1000/uL (130-400); RED BLOOD CELL COUNT 5.17 mill/uL (4.7-6.1); RED CELL DISTRIBUTION WIDTH 17.9 % (11.6-14.6)
[2017-06-23 08:05] VITALS: BP 122/53
[2017-06-23] MEDS: CARVEDILOL 3.125 MG TABLET PO SCH ×2 (09:19→21:00)
[2017-06-23] MEDS: CILOSTAZOL 50 MG TABLET PO SCH ×2 (09:19→21:25)
[2017-06-23] MEDS: FUROSEMIDE 20MG TABLET PO SCH ×2 (09:19→21:25)
[2017-06-23] MEDS: OMEPRAZOLE 20MG CAPSULE EXTENDED RELEASE PO SCH (09:19)
[2017-06-23] MEDS: APIXABAN 2.5 MG TABLET PO SCH ×2 (09:20→18:23)
[2017-06-23] MEDS: LISINOPRIL 5MG TABLET PO SCH (09:20)
[2017-06-23 12:00] VITALS: BP 141/57
[2017-06-23 16:03] VITALS: BP 103/61
[2017-06-23 20:00] VITALS: BP 110/54
[2017-06-24] VITALS (7 sets, daily range): BP systolic 86–150; BP diastolic 49–94
[2017-06-24] MEDS: HYDROCODONE/ACETAMINOPHEN 5/325MG TABLET PO PRN ×2 (00:02→12:56)
[2017-06-24 06:52] LABS: BASOPHILS % 0.6 % (0.0-2.0); EOSINOPHILS % 9.2 % (0.0-5.0); HEMATOCRIT. 37.2 % (42.0-52.0); HEMOGLOBIN. 12.3 g/dL (14.0-18.0); MEAN CORPUSCULAR HEMOGLOBIN 27.1 pg (28.0-32.0); MEAN PLATELET VOLUME 7.9 fl (7.4-10.4); MONOCYTES % 14.9 % (2.0-8.0); NEUTROPHILS % 51.3 % (40.0-76.0); PLATELET 221 x1000/uL (130-400); RED BLOOD CELL COUNT 4.53 mill/uL (4.7-6.1); RED CELL DISTRIBUTION WIDTH 17.8 % (11.6-14.6)
[2017-06-24] MEDS: LISINOPRIL 5MG TABLET PO SCH (08:27)
[2017-06-24] MEDS: CARVEDILOL 3.125 MG TABLET PO SCH ×2 (08:27→21:55)
[2017-06-24] MEDS: CILOSTAZOL 50 MG TABLET PO SCH ×2 (09:20→21:54)
[2017-06-24] MEDS: FAMOTIDINE 20MG TABLET PO SCH (09:20)
[2017-06-24] MEDS: FUROSEMIDE 20MG TABLET PO SCH ×2 (09:20→21:54)
[2017-06-24] MEDS: APIXABAN 2.5 MG TABLET PO SCH ×2 (09:20→17:56)
[2017-06-24] MEDS ORDERED: LORAZEPAM 2MG/ML CPJ IV PRN (21:45)
[2017-06-25] VITALS: BP 114/58
[2017-06-25 04:00] VITALS: BP 112/64
[2017-06-25 08:00] VITALS: BP_SYST 104; BP_SYST 157; BP_DIAS 55; BP_DIAS 61
[2017-06-25] MEDS: LISINOPRIL 5MG TABLET PO SCH (09:00)
[2017-06-25] MEDS: CARVEDILOL 3.125 MG TABLET PO SCH ×2 (09:00→21:28)
[2017-06-25] MEDS: FAMOTIDINE 20MG TABLET PO SCH (09:13)
[2017-06-25] MEDS: APIXABAN 2.5 MG TABLET PO SCH (09:13)
[2017-06-25] MEDS: CILOSTAZOL 50 MG TABLET PO SCH ×2 (09:13→21:28)
[2017-06-25] MEDS: FUROSEMIDE 20MG TABLET PO SCH ×2 (09:13→21:28)
[2017-06-25] MEDS: HYDROCODONE/ACETAMINOPHEN 5/325MG TABLET PO PRN (09:16)
[2017-06-25 09:24] LABS: BASOPHILS % 0.8 % (0.0-2.0); EOSINOPHILS % 6.8 % (0.0-5.0); HEMATOCRIT. 37.9 % (42.0-52.0); HEMOGLOBIN. 12.3 g/dL (14.0-18.0); LYMPHOCYTES % 18.9 % (20.0-50.0); MEAN CORPUSCULAR HEMOGLOBIN 26.6 pg (28.0-32.0); MEAN CORPUSCULAR VOLUME 82.1 fL (80.0-94.0); MEAN PLATELET VOLUME 7.9 fl (7.4-10.4); MONOCYTES % 7.8 % (2.0-8.0); NEUTROPHILS % 65.7 % (40.0-76.0); PLATELET 229 x1000/uL (130-400); RED BLOOD CELL COUNT 4.62 mill/uL (4.7-6.1); RED CELL DISTRIBUTION WIDTH 17.3 % (11.6-14.6)
[2017-06-25 12:00] VITALS: BP 123/99
[2017-06-25 16:00] VITALS: BP 108/69
[2017-06-25 20:00] VITALS: BP 128/62
[2017-06-26] VITALS (7 sets, daily range): BP systolic 96–117; BP diastolic 49–63
[2017-06-26 06:22] LABS: BASOPHILS % 0.4 % (0.0-2.0); EOSINOPHILS % 5.3 % (0.0-5.0); HEMATOCRIT. 36.1 % (42.0-52.0); HEMOGLOBIN. 11.8 g/dL (14.0-18.0); LYMPHOCYTES % 15.5 % (20.0-50.0); MEAN CORPUSCULAR HEMOGLOBIN 26.9 pg (28.0-32.0); MEAN CORPUSCULAR VOLUME 82.1 fL (80.0-94.0); MEAN PLATELET VOLUME 8.4 fl (7.4-10.4); MONOCYTES % 8.2 % (2.0-8.0); NEUTROPHILS % 70.6 % (40.0-76.0); PLATELET 219 x1000/uL (130-400); RED CELL DISTRIBUTION WIDTH 17.1 % (11.6-14.6)
[2017-06-26] MEDS: CILOSTAZOL 50 MG TABLET PO SCH ×2 (08:40→21:48)
[2017-06-26] MEDS: FAMOTIDINE 20MG TABLET PO SCH (08:40)
[2017-06-26] MEDS: FUROSEMIDE 20MG TABLET PO SCH (08:40)
[2017-06-26] MEDS: CARVEDILOL 3.125 MG TABLET PO SCH ×2 (08:40→21:48)
[2017-06-26] MEDS: LISINOPRIL 5MG TABLET PO SCH (08:40)
[2017-06-27] VITALS (9 sets, daily range): BP systolic 108–148; BP diastolic 44–80
[2017-06-27] MEDS ORDERED: SODIUM CHLORIDE 0.45% 1,000 ML IV ONE (06:00)
[2017-06-27 07:13] LABS: BASOPHILS % 0.6 % (0.0-2.0); HEMATOCRIT. 36.3 % (42.0-52.0); HEMOGLOBIN. 11.8 g/dL (14.0-18.0); LYMPHOCYTES % 17.7 % (20.0-50.0); MEAN CORPUSCULAR VOLUME 82.6 fL (80.0-94.0); MEAN PLATELET VOLUME 8.2 fl (7.4-10.4); MONOCYTES % 9.5 % (2.0-8.0); NEUTROPHILS % 63.2 % (40.0-76.0); PLATELET 228 x1000/uL (130-400); RED BLOOD CELL COUNT 4.39 mill/uL (4.7-6.1); RED CELL DISTRIBUTION WIDTH 16.9 % (11.6-14.6)
[2017-06-27] MEDS ORDERED: HEPARIN SODIUM 1,000 UNIT/1ML VIAL IV ONE (09:59)
[2017-06-27] MEDS ORDERED: LIDOCAINE HCL 1% 20ML VIAL (Pyxis) INJ ONE (12:28)
[2017-06-27] MEDS ORDERED: IODIXANOL 320MG/ML 100 ML BOTTLE IV ONE (12:28)
[2017-06-27] MEDS ORDERED: FENTANYL CITRATE/PF 50MCG/ML 2ML VIAL ONE (13:21)
[2017-06-27] MEDS ORDERED: MIDAZOLAM HCL 2 MG/2 ML VIAL ONE (13:21)
[2017-06-27] MEDS ORDERED: ASPIRIN/SOD BICARB/CITRIC ACID 324MG TAB EFF ONE (13:26)
[2017-06-27] MEDS ORDERED: IOVERSOL 240MG/ML 100ML BOTTLE IV ONE (13:46)
[2017-06-27] MEDS ORDERED: CLOPIDOGREL 75MG TABLET PO NR (14:30)
[2017-06-27] MEDS ORDERED: SODIUM CHLORIDE 0.45% 1,000 ML IV NR (14:30)
[2017-06-27] MEDS ORDERED: ATROPINE SULFATE 1MG/10ML SYR IV PRN (14:30)
[2017-06-27] MEDS ORDERED: ACETAMINOPHEN 325MG TABLET PO PRN (14:30)
[2017-06-27] MEDS ORDERED: ATROPINE SULFATE 1MG/10ML SYR ONE (22:29)
[2017-06-27] MEDS: FAMOTIDINE 20MG TABLET PO SCH (23:20)
[2017-06-27] MEDS: LISINOPRIL 5MG TABLET PO SCH (23:21)
[2017-06-27] MEDS: CARVEDILOL 3.125 MG TABLET PO SCH (23:23)
[2017-06-28] VITALS (15 sets, daily range): BP systolic 93–132; BP diastolic 42–76
[2017-06-28 07:18] LABS: BASOPHILS % 0.4 % (0.0-2.0); EOSINOPHILS % 7.1 % (0.0-5.0); HEMATOCRIT. 36.6 % (42.0-52.0); HEMOGLOBIN. 11.9 g/dL (14.0-18.0); LYMPHOCYTES % 13.1 % (20.0-50.0); MEAN CORPUSCULAR VOLUME 83.4 fL (80.0-94.0); MEAN PLATELET VOLUME 8.2 fl (7.4-10.4); MONOCYTES % 10.2 % (2.0-8.0); NEUTROPHILS % 69.2 % (40.0-76.0); PLATELET 219 x1000/uL (130-400); RED BLOOD CELL COUNT 4.39 mill/uL (4.7-6.1); RED CELL DISTRIBUTION WIDTH 16.5 % (11.6-14.6)
[2017-06-28] MEDS: FAMOTIDINE 20MG TABLET PO SCH (08:18)
[2017-06-28] MEDS: CARVEDILOL 3.125 MG TABLET PO SCH ×2 (08:19→21:13)
[2017-06-28] MEDS ORDERED: ASPIRIN 81MG TABLET PO SCH (09:00)
[2017-06-28] MEDS ORDERED: CLOPIDOGREL 75MG TABLET PO SCH (09:00)
[2017-06-28] MEDS: LISINOPRIL 5MG TABLET PO SCH (09:00)
[2017-06-28] MEDS: SODIUM CHLORIDE 0.9% 250 ML IV NR ×3 (11:46→13:22)
== END 2017-06-28 22:05 | DRG 252 ==
LOC: ER 10:14 → 7WST 11:44 → SUPCPDRO 13:20 → ENRESERV 19:58 → 3WST 06-27 16:19
PROVIDERS: ADMIT Family Medicine Adult Medicine; ATTEND Family Medicine Adult Medicine
PROC: 047L341 Dilation of Left Femoral Artery with Drug-eluting Intraluminal Device, using Drug-Coated Balloon, Percutaneous Approach (ICD-10-PCS; principal; 2017-06-27)
PROC: B41F1ZZ Fluoroscopy of Right Lower Extremity Arteries using Low Osmolar Contrast (ICD-10-PCS; 2017-06-27)
DX: I13.0 Hypertensive heart and chronic kidney disease with heart failure and stage 1 through stage 4 chronic kidney disease, or unspecified chronic kidney disease (principal); I50.41 Acute combined systolic (congestive) and diastolic (congestive) heart failure; N18.4 Chronic kidney disease, stage 4 (severe); I27.20 Pulmonary hypertension, unspecified; I42.0 Dilated cardiomyopathy; L97.419 Non-pressure chronic ulcer of right heel and midfoot with unspecified severity; I48.0 Paroxysmal atrial fibrillation; N17.9 Acute kidney failure, unspecified; I48.2 Chronic atrial fibrillation; Z99.81 Dependence on supplemental oxygen; B35.3 Tinea pedis; J44.9 Chronic obstructive pulmonary disease, unspecified; Z66 Do not resuscitate; L60.3 Nail dystrophy; I25.10 Atherosclerotic heart disease of native coronary artery without angina pectoris; I25.5 Ischemic cardiomyopathy; F03.90 Unspecified dementia, unspecified severity, without behavioral disturbance, psychotic disturbance, mood disturbance, and anxiety; I25.2 Old myocardial infarction; Z79.01 Long term (current) use of anticoagulants; Z85.038 Personal history of other malignant neoplasm of large intestine; Z86.73 Personal history of transient ischemic attack (TIA), and cerebral infarction without residual deficits; Z86.79 Personal history of other diseases of the circulatory system; Z95.0 Presence of cardiac pacemaker; Z95.810 Presence of automatic (implantable) cardiac defibrillator; Z88.1 Allergy status to other antibiotic agents; Z88.0 Allergy status to penicillin; Z88.8 Allergy status to other drugs, medicaments and biological substances; Z79.899 Other long term (current) drug therapy
CPT/HCPCS: 36415; 37226; 71045; 75710; 80048; 80053; 82962; 83735; 83880; 84484; 85025; 85347; 85610; 85730; 93005; 93923; 96372; 97163; 99291; C1725; C1769; C1874; C1887; C1893; C1894; J0461; J1644; J1650; J2060; J2250; J3010; J3490; Q9967